=== PATIENT | male | born 1975 | race Native Hawaiian/Other Pacific Islander ===

== ENCOUNTER 2018-09-14 03:48 | Inpatient (IN) | payer MEDICAID ==
[2018-09-14] MEDS ORDERED: Naloxone 0.4 mg/ml Inj (Adult) IVP ONE ×2 (04:01→04:23)
[2018-09-14 04:22] LABS: BASO # 0.03 K/mm3 (0.0-2.0); BASO % 0.2 % (0.0-3.0); EOS # 0.2 (0.0-0.7); EOS % 1.5 % (1.5-5.0); GRAN # 8.72 (1.4-6.5); GRAN % 71.4 % (50.0-68.0); HEMOGLOBIN 16.9 g/dL (14.0-18.0); LYMPH # 2.2 (1.2-3.4); LYMPH % 18.3 % (22.0-35.0); MEAN CELL VOLUME 86.3 fl (80.0-105.0); MEAN CORPUSCULAR HEMOGLOBIN 29.3 pg (25.0-35.0); MEAN CORPUSCULAR HGB CONC 33.9 g/dl (31.0-37.0); MEAN PLATELET VOLUME 9.3 fl (7.0-11.0); MONO # 1.1 (0.1-0.6); MONO % 8.6 % (1.0-6.0); RBC 5.77 10^6/uL (3.5-6.1); RED CELL DISTRIBUTION WIDTH 15.4 % (11.5-14.5); WHITE BLOOD COUNT 12.2 10^3/uL (4.5-11.0)
--- NOTE | 2018-09-14 04:29 | ED PDOC ---
Arrival/HPI - General Chief Complaint: Substance Abuse Time Seen by Provider: 09/14/18 03:49 Historian: Patient - History of Present Illness Narrative History of Present Illness (Text): 09/14/18 04:21 42 year old male, with a past medical history of IV drug abuse, presents to the emergency department by EMS for possible overdose. EMS states family noted patient to be poorly arousable, probably from heroin use. Ems states upon arrival patient was drowsy but awake. EMS informs patient wanted RMA but was strongly advised to come to the emergency department. Patient admits to using heroin, denies alcohol use. Patient denies any fevers, chills, headache, dizziness, chest pain, shortness of breath, cough, abdominal pain, nausea, vomiting, diarrhea, back pain, neck pain, urinary/bowel changes, or any other complaint. Time/Duration: Prior to Arrival Symptom Course: Unchanged Context: Home Past Medical History - Provider Review Nursing Documentation Reviewed: Yes - Psychiatric Hx Substance Use: Yes Family/Social History - Physician Review Nursing Documentation Reviewed: Yes Family/Social History: No Known Family HX Smoking Status: Unknown If Ever Smoked Hx Alcohol Use: No Hx Substance Use: Yes Substance used: heroin Allergies/Home Meds Allergies/Adverse Reactions: Allergies Unobtainable Allergy (Verified 09/14/18 03:56) Home Medications: Home Meds Medication Instructions Recorded Confirmed Unobtainable 09/14/18 09/14/18 Review of Systems - Physician Review All systems were reviewed & negative as marked: Yes - Review of Systems Constitutional: absent: Fevers, Night Sweats Respiratory: absent: SOB, Cough Cardiovascular: absent: Other Gastrointestinal: absent: Abdominal Pain, Diarrhea, Nausea, Vomiting Genitourinary Male: absent: Urinary Output Changes Musculoskeletal: absent: Back Pain, Neck Pain Neurological: absent: Headache, Dizziness Physical Exam Vital Signs Reviewed: Yes Vital Signs Pulse Resp BP Pulse Ox 09/14/18 03:53 132 H 20 184/144 H 96 Blood Pressure: Hypertensive Pulse: Tachycardic Respiratory Rate: Normal Appearance: Positive for: Well-Appearing, Non-Toxic, Comfortable Pain Distress: None Mental Status: Positive for: Lethargic - Systems Exam Head: Present: Atraumatic, Normocephalic Pupils: Present: Pinpoint Extroacular Muscles: Present: EOMI Conjunctiva: Present: Normal Mouth: Present: Moist Mucous Membranes Neck: Present: Normal Range of Motion Respiratory/Chest: Present: Clear to Auscultation, Good Air Exchange. No: Respiratory Distress, Accessory Muscle Use Cardiovascular: Present: Regular Rate and Rhythm, Normal S1, S2. No: Murmurs Abdomen: No: Tenderness, Distention, Peritoneal Signs Back: Present: Normal Inspection Upper Extremity: Present: Normal Inspection. No: Cyanosis, Edema Lower Extremity: Present: Normal Inspection. No: Edema Skin: Present: Warm, Dry, Normal Color. No: Rashes Psychiatric: Present: Oriented x 3, Intoxicated, Lethargic Medical Decision Making ED Course and Treatment: 09/14/18 04:32 Impression: 42 year old male presents with overdose. Plan: -- EKG -- Chest X-ray -- Narcan -- Reassess and disposition Prior Visits: Notes and results from previous visits were reviewed. Progress Notes: 09/14/18 07:15 Case endorsed to /pending lab completion/sobriety/reassess/final disposition - Lab Interpretations Lab Results: Lab Results 09/14/18 04:02: POC Glucose (mg/dL) 176 H - RAD Interpretation Radiology Orders: 09/14/18 04:00 CHEST PORTABLE [RAD] Stat - Medication Orders Current Medication Orders: Discontinued Medications Naloxone HCl (Narcan) 0.4 mg IVP ONCE ONE Stop: 09/14/18 04:02 Last Admin: 09/14/18 04:11 Dose: 0.4 mg IVP Administration Document 09/14/18 04:11 CNR (Rec: 09/14/18 04:11 CNR [id number]) Charges for Administration # of IVP Administrations 1 - Scribe Statement The provider has reviewed the documentation as recorded by the Nando Wilcox Provider Scribe Attestation: All medical record entries made by the Scribe were at my direction and personally dictated by me. I have reviewed the chart and agree that the record accurately reflects my personal performance of the history, physical exam, medical decision making, and the department course for this patient. I have also personally directed, reviewed, and agree with the discharge instructions and disposition. Disposition/Present on Arrival - Present on Arrival Any Indicators Present on Arrival: No History of DVT/PE: No History of Uncontrolled Diabetes: No Urinary Catheter: No History of Decub. Ulcer: No History Surgical Site Infection Following: None - Disposition Have Diagnosis and Disposition been Completed?: No Diagnosis: Opiate abuse, episodic Disposition Time: 07:13 Condition: STABLE Referrals: José Luis Collier MD [Primary Care Provider] - Follow up with primary Forms: [employer] (Kyrgyz)
[2018-09-14] MEDS ORDERED: Sodium Chloride 0.9% 1,000 ML IV STA (04:54)
[2018-09-14 07:04] LABS: ALB/GLOB RATIO 0.6 (1.1-1.8); ALBUMIN 3.3 g/dL (3.0-4.8); ALT/SGPT 35 U/L (7-56); AST/SGOT 47 U/L (17-59); BLOOD UREA NITROGEN 13 mg/dL (7-21); CALCIUM 8.2 mg/dL (8.4-10.5); GFR NON-AFRICAN AMERICAN > 60
--- NOTE | 2018-09-14 07:11 | ED PDOC ---
Physical Exam Vital Signs Reviewed: Yes Vital Signs Temp Pulse Resp BP Pulse Ox 09/14/18 05:42 107 H 26 H 171/113 H 96 09/14/18 03:53 97.3 F L 132 H 20 184/144 H 96 Temperature: Hypothermic Blood Pressure: Hypertensive Pulse: Tachycardic Respiratory Rate: Normal Appearance: Positive for: Well-Appearing, Non-Toxic, Comfortable Pain Distress: None Mental Status: Positive for: Alert and Oriented X 3 Medical Decision Making ED Course and Treatment: 09/14/18 07:10: Case endorsed to me by Dr. Hernandez. Patient brought into the emergency department for IV heroin drug abuse. Pending sobriety, reassessment, and disposition. 09/14/18 07:41: Troponin reported to be 0.15. Will repeat EKG. 09/14/18 07:49: Reviewed EKG from 03:58 which showed sinus tachycardia at [address]-depressions in the inferior lateral leads. 09/14/18 07:53: Patient is alert, awake, and oriented X 3. Admits to IV heroin use. He states that he only used 1 bag. He reports that he felt general body aches yesterday, but denies chest pain or shortness of breath. Patient currently denies any chest pain or shortness of breath. Patient has a history of DM, HTN, HLD and is a smoker. Discussed results from blood work with patient and agrees to be admitted for cardiac workup. Patient's PMD is Dr. Collier. 09/14/18 07:59: Case discussed in detail with Dr. Donaldson who accepts the patient to the hospitalist's service. Labetolol IV and Aspirin PO ordered. 09/14/18 08:07 Repeat EKG: NSR at [address] depression in inferior lateral leads, similar to EKG on arrival to ED 09/14/18 08:14: Case discussed in detail with Dr. June who was informed of current medical medical management. He has no further recommendation to me at this time. He was placed on cardiology consult. - Critical Care Critical Care Minutes: 30 minutes - Lab Interpretations Lab Results: 09/14/18 04:05 09/14/18 06:35 Lab Results 09/14/18 06:35: Sodium 135, Potassium 3.5 L, Chloride 104, Carbon Dioxide 24, Anion Gap 11, BUN 13, Creatinine 1.0, Est GFR ( Amer) > 60, Est GFR (Non- Af Amer) > 60, Random Glucose 140 H, Calcium 8.2 L, Total Bilirubin 2.4 H, AST 47, ALT 35, Alkaline Phosphatase 223 H, Lactate Dehydrogenase 665, Total Creatine Kinase 138, Troponin I Pending, Total Protein 8.6 H, Albumin 3.3, Globulin 5.3, Albumin/Globulin Ratio 0.6 L 09/14/18 04:05: WBC 12.2 H, RBC 5.77, Hgb 16.9, Hct 49.8, MCV 86.3, MCH 29.3, MCHC 33.9, RDW 15.4 H, Plt Count 316, MPV 9.3, Gran % 71.4 H, Lymph % (Auto) 1 8.3 L, [place] % (Auto) 8.6 H, Eos % (Auto) 1.5, Baso % (Auto) 0.2, Gran # 8.72 H, Lymph # (Auto) 2.2, [place] # (Auto) 1.1 H, Eos # (Auto) 0.2, Baso # (Auto) 0.03 09/14/18 04:02: POC Glucose (mg/dL) 176 H - RAD Interpretation Radiology Orders: 09/14/18 04:00 CHEST PORTABLE [RAD] Stat - Medication Orders Current Medication Orders: Discontinued Medications Sodium Chloride (Sodium Chloride 0.9%) 1,000 mls @ 999 mls/hr IV .Q1H1M STA Stop: 09/14/18 05:54 Last Admin: 09/14/18 05:02 Dose: 999 mls/hr eMAR Start Stop Document 09/14/18 05:02 CNR (Rec: 09/14/18 05:03 CNR [id number]) Intravenous Solution Start Date 09/14/18 Start Time 05:03 End Date 09/14/18 End time 06:03 Total Infusion Time 60 Naloxone HCl (Narcan) 0.4 mg IVP ONCE ONE Stop: 09/14/18 04:02 Last Admin: 09/14/18 04:11 Dose: 0.4 mg IVP Administration Document 09/14/18 04:11 CNR (Rec: 09/14/18 04:11 CNR [id number]) Charges for Administration # of IVP Administrations 1 Naloxone HCl (Narcan) 0.4 mg IVP ONCE ONE Stop: 09/14/18 04:24 Last Admin: 09/14/18 04:20 Dose: 0.4 mg IVP Administration Document 09/14/18 04:20 CNR (Rec: 09/14/18 04:25 CNR [id number]) Charges for Administration # of IVP Administrations 1 - Scribe Statement The provider has reviewed the documentation as recorded by the Nando Maddox Provider Scribe Attestation: All medical record entries made by the Scribe were at my direction and personally dictated by me. I have reviewed the chart and agree that the record accurately reflects my personal performance of the history, physical exam, medical decision making, and the department course for this patient. I have also personally directed, reviewed, and agree with the discharge instructions and disposition. Disposition/Present on Arrival - Present on Arrival Any Indicators Present on Arrival: No History of DVT/PE: No History of Uncontrolled Diabetes: No Urinary Catheter: No History of Decub. Ulcer: No History Surgical Site Infection Following: None - Disposition Have Diagnosis and Disposition been Completed?: Yes Diagnosis: Hypertensive emergency, Heroin overdose, NSTEMI (non-ST elevated myocardial infarction) Disposition Time: 08:19 Patient Plan: Admission Patient Problems: Current Active Problems Problem Status Onset Opiate abuse, episodic Acute Condition: STABLE
[2018-09-14 07:37] LABS: TROPONIN I 0.15 ng/mL
[2018-09-14] MEDS ORDERED: Labetalol 5 mg/ml Inj 20ML IV STA (08:01)
[2018-09-14] MEDS ORDERED: Potassium Chloride 20 mEq ER Tab PO STA (08:23)
--- NOTE | 2018-09-14 08:32 | CP.PCM.HP ---
<BarberClementine - Last Filed: 09/14/18 19:10> History of Present Illness - History of Present Illness History of Present Illness: PGY-[address] Donaldson Mr Katerina, 42 M, with PMHx TIA, CHF/HTN/HLD, DM2, active smoker, Hx polysubstance abuse, was brought by EMS for overdose. Per ED record, EMS states family noted patient to be poorly arousable, probably from heroin use. Ems states upon arrival patient was drowsy but awakable. Patient admits to using IV heroin (1 bag), denies alcohol use. Pt endorsed that he had sore throat, runny nose, general body aches x 1 week. Then 3 days ago, he had penile discharge with dysuria. Denies new sexual partner or similar symptoms in partner. Because of the dysuria, pt resorted to heroine use as pain killer. At baseline, pt sleeps on 1 pillow, denies orthopnea, but become dyspneic after walking [address] or [address] flight of stairs ROS - Patient denies any fevers, chills, headache, dizziness, chest pain, shortness of breath, cough, abdominal pain, nausea, vomiting, diarrhea, back pain, neck pain, urinary/bowel changes, or any other complaint. In the ED, T 97.3, HR 132, 184/144, RR 26, 96% RA WBC 12.2 with granulocytosis. Hb 16.9 K 3.5. BUN/Cre 13/1. Sugar 176. TB 2.4. AST 47/ALT 35. Alk phos 223 CXR: Patchy R basilar infiltrate EKG 4AM: sinus tachycardia at [address]-depressions in the inferior lateral leads more than 0.5mm depression EKG 8am : NSR at [address] depression in inferior lateral leads, Less than 0.5mm depression Troponin reported to be 0.15 x 2. Narcan 0.4 IVP x 2. Labetolol IV x 20. Aspirin PO 324. NS 1L PMD - Dr Collier [facility] TIA, 2017 HTN/HLD CHF, diagnosed 2016 DM2 Active smoker IVDU PSH Cardiac [place] [facility]. Endorsed by pt to have no blockage FH Mom - ESRD DM SH Live with significant other (female), mom, dad, and brother. Ambulate independently Active smoker, 1ppd x 20yr Denied ETOH [place] monthly. Heroine, IV R arm, 2nd time to use. 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 Present on Admission - Present on Admission Any Indicators Present on Admission: No Past Patient History - Past Social History Smoking Status: Unknown If Ever Smoked - PSYCHIATRIC Hx Substance Use: Yes Meds Allergies/Adverse Reactions: Allergies Allergy/AdvReac Type Severity Reaction Status Date / Time No Known Allergies Allergy Verified 09/14/18 14:25 Physical Exam - Constitutional Appears: No Acute Distress - Head Exam Head Exam: ATRAUMATIC, NORMAL INSPECTION, NORMOCEPHALIC - Eye Exam Eye Exam: EOMI, Normal appearance, PERRL. absent: Scleral icterus Pupil Exam: NORMAL ACCOMODATION - ENT Exam ENT Exam: Mucous Membranes Moist - Neck Exam Neck exam: Negative for: Lymphadenopathy Additional comments: supple - Respiratory Exam Respiratory Exam: Clear to Auscultation Bilateral, NORMAL BREATHING PATTERN. absent: Decreased Breath Sounds, Rales, Rhonchi, Wheezes - Cardiovascular Exam Cardiovascular Exam: REGULAR RHYTHM, +S1, +S2. absent: Systolic Murmur - GI/Abdominal Exam GI & Abdominal Exam: Normal Bowel Sounds, Soft. absent: Distended, Firm, Guard ing, Tenderness - Exam Exam: Uretheral Discharge (clear, non-bloody). absent: Scrotal Swelling, Testicular Tenderness, Bladder Distension - Extremities Exam Extremities exam: Positive for: normal capillary refill, normal inspection, pedal pulses present. Negative for: calf tenderness, pedal edema Additional comments: Needle ector on R forearm, no rash - Back Exam Back exam: absent: CVA tenderness (L), CVA tenderness (R), rash noted, vertebral tenderness - Neurological Exam Neurological exam: Alert, CN II-XII Intact, Oriented x3 - Psychiatric Exam Psychiatric exam: Normal Affect, Normal Mood - Skin Skin Exam: Dry, Warm Results - Vital Signs Recent Vital Signs: Last Vital Signs Temp 97.3 F L 09/14/18 03:53 Pulse 98 H 09/14/18 07:24 Resp 21 09/14/18 07:24 BP 176/124 H 09/14/18 08:09 Pulse Ox 97 09/14/18 07:24 - Labs Result Diagrams: 09/14/18 04:05 10/26/18 06:35 Labs: Laboratory Results - last 24 hr 09/14/18 09/14/18 09/14/18 04:02 04:05 06:35 WBC 12.2 H RBC 5.77 Hgb 16.9 Hct 49.8 MCV 86.3 MCH 29.3 MCHC 33.9 RDW 15.4 H Plt Count 316 MPV 9.3 Gran % 71.4 H Lymph % (Auto) 18.3 L [place] % (Auto) 8.6 H Eos % (Auto) 1.5 Baso % (Auto) 0.2 Gran # 8.72 H Lymph # (Auto) 2.2 [place] # (Auto) 1.1 H Eos # (Auto) 0.2 Baso # (Auto) 0.03 Sodium 135 Potassium 3.5 L Chloride 104 Carbon Dioxide 24 Anion Gap 11 BUN 13 Creatinine 1.0 Est GFR ( Amer) > 60 Est GFR (Non-Af Amer) > 60 POC Glucose (mg/dL) 176 H Random Glucose 140 H Calcium 8.2 L Total Bilirubin 2.4 H AST 47 ALT 35 Alkaline Phosphatase 223 H Lactate Dehydrogenase 665 Total Creatine Kinase 138 Troponin I 0.15 H* Total Protein 8.6 H Albumin 3.3 Globulin 5.3 Albumin/Globulin Ratio 0.6 L Assessment & Plan - Assessment and Plan (Free Text) Plan: Mr Borges, 42 M, with PMHx TIA, CHF/HTN/HLD, DM2, active smoker, Hx polysubstance abuse, was admitted for alter mental status due to IV heroine overdose. He was found to have leukocytosis 12.2 and Patchy R basilar infiltrate on CXR likely aspiration pneumonitis. He was found to have elevated trops of 0.[address] depression at inferior-lateral leads, likely NSTEMI due to demand ischemia. ESTEPHANIA score is 1 for known cardiac risk, no need for emergent catherterization. Alter mental status due to IV heroine overdose - improve after narcane - neuro check q4h - Continuous CO2 monitor - aspiration precautions - Weaving Professor for substance abuse cessation NSTEMI, likely due to demand ischemia from sinus tachycardia at 140 s/p narcane Sinus tachycardia - resolved Hx CHF HTN/HLD - No need for emergent cath, low ESTEPHANIA score - No need for heparin gtt for now due to mild trop leaks. Pending cardiology re cs - Continue to trend trops and EKG - Echocardiogram - ASA 81, Lipitor 10, Coreg 3.125 BID Aspiration pneumonitis vs CAP from upper respiratory infection - ceftriaxone and flagyl - trend WBC - follow blood culture, urine ulture, procalcitonin Urethritis, Dyusria, Penile discharge - Pending Gonorrhea/Chlamydia RNA from urethral swab - ABX has coverage Hx DM2 - follow A1c - ISSS-low, Accucheck - diabetic education Active smoker - nicoderm patch - consumer credit counselor for cessation Direct Hyperbilirubenimia - No abdominal pain - questionable from polysubstance abuse - continue to trend bilirubin for now. If level improves, will increase lipitor to 20 tomorrow Medication non-compliance - conducted pt education Prophylaxis - protonix, heparin SC s/r/d/w Dr Donaldson <Penny Donaldson R - Last Filed: 09/15/18 12:53> Results - Vital Signs Recent Vital Signs: Last Vital Signs Temp 97.6 F 09/15/18 12:00 Pulse 81 09/15/18 12:00 Resp 20 09/15/18 12:00 BP 153/108 H 09/15/18 12:00 Pulse Ox 96 09/15/18 06:00 - Labs Result Diagrams: 09/15/18 05:30 09/15/18 05:30 Labs: Laboratory Results - last 24 hr 09/14/18 09/14/18 09/14/18 04:10 06:35 09:00 WBC RBC Hgb Hct MCV MCH MCHC RDW Plt Count MPV Gran % Lymph % (Auto) [place] % (Auto) Eos % (Auto) Baso % (Auto) Gran # Lymph # (Auto) [place] # (Auto) Eos # (Auto) Baso # (Auto) Sodium Potassium Chloride Carbon Dioxide Anion Gap BUN Creatinine Est GFR ( Amer) Est GFR (Non-Af Amer) POC Glucose (mg/dL) Random Glucose Hemoglobin A1c 6.8 H Calcium Phosphorus Magnesium Total Bilirubin AST ALT Alkaline Phosphatase Lactate Dehydrogenase Total Creatine Kinase Troponin I Total Protein Albumin Globulin Albumin/Globulin Ratio Procalcitonin 0.35 Urine Color Urine Appearance Urine pH Ur Specific [place] Urine Protein Urine Glucose (UA) Urine Ketones Urine Blood Urine Nitrate Urine Bilirubin Urine Urobilinogen Ur Leukocyte Esterase Urine RBC Urine WBC Urine Bacteria Urine Opiates Screen Urine Methadone Screen Ur Barbiturates Screen Ur Phencyclidine Scrn Ur Amphetamines Screen U Benzodiazepines Scrn U Oth Cocaine Metabols U Cannabinoids Screen HIV 1&2 Ag/Ab, 4th Gen Nonreactive 09/14/18 09/14/18 09/14/18 11:35 13:33 18:12 WBC RBC Hgb Hct MCV MCH MCHC RDW Plt Count MPV Gran % Lymph % (Auto) [place] % (Auto) Eos % (Auto) Baso % (Auto) Gran # Lymph # (Auto) [place] # (Auto) Eos # (Auto) Baso # (Auto) Sodium Potassium Chloride Carbon Dioxide Anion Gap BUN Creatinine Est GFR ( Amer) Est GFR (Non-Af Amer) POC Glucose (mg/dL) 122 H Random Glucose Hemoglobin A1c Calcium Phosphorus Magnesium Total Bilirubin AST ALT Alkaline Phosphatase Lactate Dehydrogenase Total Creatine Kinase Troponin I 0.15 H* Total Protein Albumin Globulin Albumin/Globulin Ratio Procalcitonin Urine Color Yellow Urine Appearance Turbid Urine pH 7.5 Ur Specific [place] 1.020 Urine Protein >=300 H Urine Glucose (UA) 100 H Urine Ketones Negative Urine Blood Large H Urine Nitrate Negative Urine Bilirubin Small H Urine Urobilinogen 2.0 H Ur Leukocyte Esterase Large H Urine RBC 1 - 3 Urine WBC Tntc Urine Bacteria Many Urine Opiates Screen Urine Methadone Screen Ur Barbiturates Screen Ur Phencyclidine Scrn Ur Amphetamines Screen U Benzodiazepines Scrn U Oth Cocaine Metabols U Cannabinoids Screen HIV 1&2 Ag/Ab, 4th Gen 09/14/18 09/14/18 09/14/18 18:16 21:24 22:45 WBC RBC Hgb Hct MCV MCH MCHC RDW Plt Count MPV Gran % Lymph % (Auto) [place] % (Auto) Eos % (Auto) Baso % (Auto) Gran # Lymph # (Auto) [place] # (Auto) Eos # (Auto) Baso # (Auto) Sodium Potassium Chloride Carbon Dioxide Anion Gap BUN Creatinine Est GFR ( Amer) Est GFR (Non-Af Amer) POC Glucose (mg/dL) 114 H Random Glucose Hemoglobin A1c Calcium Phosphorus Magnesium Total Bilirubin AST ALT Alkaline Phosphatase Lactate Dehydrogenase 640 Total Creatine Kinase 101 Troponin I 0.12 Total Protein Albumin Globulin Albumin/Globulin Ratio Procalcitonin Urine Color Urine Appearance Urine pH Ur Specific [place] Urine Protein Urine Glucose (UA) Urine Ketones Urine Blood Urine Nitrate Urine Bilirubin Urine Urobilinogen Ur Leukocyte Esterase Urine RBC Urine WBC Urine Bacteria Urine Opiates Screen Positive H Urine Methadone Screen Negative Ur Barbiturates Screen Negative Ur Phencyclidine Scrn Negative Ur Amphetamines Screen Positive H U Benzodiazepines Scrn Negative U Oth Cocaine Metabols Negative U Cannabinoids Screen Negative HIV 1&2 Ag/Ab, 4th Gen 09/15/18 09/15/18 09/15/18 05:30 05:30 05:30 WBC 10.8 RBC 4.98 Hgb 14.3 D Hct 43.3 MCV 86.9 MCH 28.7 MCHC 33.0 RDW 14.9 H Plt Count 299 MPV 9.7 Gran % 62.7 Lymph % (Auto) 22.9 [place] % (Auto) 10.7 H Eos % (Auto) 3.1 Baso % (Auto) 0.6 Gran # 6.76 H Lymph # (Auto) 2.5 [place] # (Auto) 1.2 H Eos # (Auto) 0.3 Baso # (Auto) 0.07 Sodium 132 Potassium 4.4 Chloride 100 Carbon Dioxide 23 Anion Gap 12 BUN 23 H Creatinine 1.1 Est GFR ( Amer) > 60 Est GFR (Non-Af Amer) > 60 POC Glucose (mg/dL) Random Glucose 78 Hemoglobin A1c Calcium 8.3 L Phosphorus 3.6 Magnesium 1.6 L Total Bilirubin 2.4 H AST 36 ALT 31 Alkaline Phosphatase 170 H D Lactate Dehydrogenase 628 Total Creatine Kinase 74 Troponin I 0.23 H* D Total Protein 7.5 Albumin 2.6 L Globulin 4.8 Albumin/Globulin Ratio 0.5 L Procalcitonin Urine Color Urine Appearance Urine pH Ur Specific [place] Urine Protein Urine Glucose (UA) Urine Ketones Urine Blood Urine Nitrate Urine Bilirubin Urine Urobilinogen Ur Leukocyte Esterase Urine RBC Urine WBC Urine Bacteria Urine Opiates Screen Urine Methadone Screen Ur Barbiturates Screen Ur Phencyclidine Scrn Ur Amphetamines Screen U Benzodiazepines Scrn U Oth Cocaine Metabols U Cannabinoids Screen HIV 1&2 Ag/Ab, 4th Gen Attending/Attestation - Attestation I have personally seen and examined this patient.: Yes I have fully participated in the care of the patient.: Yes I have reviewed all pertinent clinical information: Yes Notes (Text): Patient seen and examined by me with resident at 10:30AM with resident 10/26/18. Case including HPI, physical exam, and assessment and plan discussed with resident. Agree with above with following additions/corrections. Patient is a 42-year-old male with past medical history significant for type 2 diabetes, hypertension, questionable CHF, noncompliance with all medications, tobacco abuse, and polysubstance abuse including IV heroin and marijuana that presented to the emergency room after using IV heroin and being lethargic. Patient states that he has only used heroin once before approximately one month ago. Patient states that he is unsure what happened. He states that the person that was doing heroin with him felt something was wrong as the patient was lethargic. EMS was called. Patient was given 2 doses of Narcan in the emergency room. Patient states he had some vomiting after receiving the Narcan. Patient states he was using heroin because he was having excruciating pain urinating for the past 2 days. Patient feels he may have an STD and believes it's chlamydia. Patient states he has noticed a clear sticky discharge from his penis. States he also has some burning with urination. No associated fevers or chills. Patient states that he has also had a runny nose, nonproductive cough, and itchy throat for the past week. Patient denies any chest pain or shortness of breath. No headaches or dizziness. No change in vision. Patient does feel lightheaded. No current nausea, vomiting or abdominal pain. No diarrhea or constipation. No neck pain or back pain. 12 point review of systems reviewed by me. See above HPI, all other systems are negative. Family history. Mother alive and ESRD on HD. Father alive and healthy. Physical exam: General: Awake and alert sitting up in bed in no distress HEENT: Normocephalic atraumatic. Extra ocular muscles intact. Pupils equal and reactive. No scleral icterus. Oropharynx is pink and moist. No pharyngeal erythema or exudate appreciated. Neck is supple. Ears and nose externally unremarkable. Cardiovascular: Normal rhythm. Normal S1, S2. No murmurs, rubs, or gallops appreciated Pulmonary: Normal respiratory effort. No rhonchi, rales, or wheezing appreciated Gastrointestinal: Soft, nondistended. Nontender. Positive bowel sounds all 4 quadrants, no guarding. Musculoskeletal: Moves all extremities, no calf tenderness. No edema appreciated : No penile lesions or erythema noted. Scant about of clear discharge noted. Central nervous system: AAOx3. CN2-12 grossly intact. 5/5 muscle strength all extremities. Dermatologic: Skin warm and dry. Assessment and plan: Patient is a 42-year-old male with past medical history significant for type 2 diabetes, hypertension, questionable CHF, noncompliance with all medications, tobacco abuse, and polysubstance abuse including IV heroin and marijuana that presented to the emergency room after using IV heroin and being lethargic. 1. Heroin overdose. Status post Narcan. Patient now awake and alert. Patient counseled at length on cessation. Aspiration precaution. 2. Accelerated hypertension. Patient was given labetalol in the emergency room with resolution. Patient does have a history of hypertension and does not take any medications. Started on Coreg with hold parameters. Cardiology consulted, follow up recommendations. 3. Elevated troponin. ?h/o CHF, patient is unsure if he was previously diagnosed with this. Follow up serial troponins. Follow up 2D echo. Cardiology consulted, follow-up recommendations. Lipid panel with the low HDL. Hemoglobin A1c 6.8. Monitor on telemetry. Started on aspirin, Lipitor, and Coreg. 4. Dysuria. UA shows urine infection. Follow-up results for chlamydia. Patient started on Rocephin. Follow-up urine culture. 5. Leukocytosis. May be secondary to UTI. Chest x-ray per radiologist shows patchy right basilar infiltrate, linear atelectasis right lung base, small bibasilar pleural effusions, bilateral hilar prominence, cardiomegaly. Started on Rocephin and Flagyl. Pro-calcitonin 0.35. We'll hold off on IV fluids sec ondary to possible history of CHF. Patient did receive a liter of fluids in the ICU. 6. Diabetes. Hemoglobin A1c 6.8. Patient does not take any medications at home. Started on insulin sliding scale. Monitor Accu-Cheks. Patient should be placed on diabetic medications prior to discharge. 7. Tobacco abuse. Marijuana use. Counseled on cessation. 8. GI/DVT prophylaxis. Protonix/heparin Case was discussed in detail with the patient regarding diagnosis and treatment plan, all questions answered.
[2018-09-14 08:57] LABS: BILIRUBIN,DIRECT 1.7 mg/dL (0.0-0.4)
[2018-09-14 09:31] LABS: INR 1.53; PARTIAL THROMBOPLASTIN TIME 38.3 Seconds (25.1-36.5); PROTHROMBIN TIME 17.7 SECONDS (9.4-12.5)
--- NOTE | 2018-09-14 10:17 | RAD ---
HISTORY: overdose COMPARISON: No prior. TECHNIQUE: Chest, one view. FINDINGS: LUNGS: Patchy right basilar infiltrate. Linear atelectasis, right lung base. Small bibasilar pleural effusions. Bilateral hilar prominence. No definite pneumothorax. Please note that chest x-ray has limited sensitivity for the detection of pulmonary masses. CARDIOVASCULAR: Cardiomegaly. Atherosclerotic calcification of the aorta present. OSSEOUS STRUCTURES: Degenerative changes. VISUALIZED UPPER ABDOMEN: Unremarkable. OTHER FINDINGS: None. IMPRESSION: Patchy right basilar infiltrate. Linear atelectasis, right lung base. Small bibasilar pleural effusions. Bilateral hilar prominence. Cardiomegaly.
--- NOTE | 2018-09-14 11:12 | CARD ---
APPROVED REPORT Date of service: 09/14/2018 EKG Measurement Heart [id number] <Conclusion> Sinus tachycardia Possible Left atrial enlargement Rightward axis IVCD ST & T wave abnormality, consider inferolateral ischemia LVH
--- NOTE | 2018-09-14 11:32 | CARD ---
APPROVED REPORT Date of service: 09/14/2018 EKG Measurement Heart [id number] <Conclusion> Normal sinus rhythm Rightward axis ST & T wave abnormality, consider lateral ischemia Prolonged QT No change
[2018-09-14 12:52] LABS: TROPONIN I 0.15 ng/mL
[2018-09-14] MEDS ORDERED: Azithromycin 500MG/NS 250ml 500 MG/250 ML BAG IVPB SCH (13:45)
[2018-09-14 13:54] LABS: PH,URINE 7.5 (4.7-8.0); URINE BILIRUBIN SMALL (NEGATIVE); URINE BLOOD LARGE (NEGATIVE); URINE GLUCOSE (UA) 100 mg/dL (NEGATIVE); URINE LEUKOCYTE ESTERASE LARGE Leu/uL (NEGATIVE); URINE PROTEIN >=300 mg/dL (<30 mg/dL)
[2018-09-14 13:58] LABS: URINE APPEARANCE TURBID (CLEAR); URINE COLOR YELLOW (YELLOW)
[2018-09-14 13:59] LABS: URINE BACTERIA MANY (NEG); URINE WBC TNTC /hpf (0-6)
[2018-09-14] MEDS: cefTRIAXone 1 gm 1 GM/100 ML BAG IVPB SCH (14:22)
[2018-09-14 14:52] VITALS: BMI 24.2
[2018-09-14] MEDS ORDERED: Influenza Vaccine 60 mcg/0.5 mL SYR (4YR UP) IM ONE (14:52)
[2018-09-14] MEDS ORDERED: Pneumococcal 23-Valent Vaccine IM ONE (14:52)
[2018-09-14] MEDS: Insulin Reg-LOW-Coverage SC SCH ×2 (18:13→22:01)
[2018-09-14 18:58] LABS: TROPONIN I 0.12 ng/mL
[2018-09-14] MEDS: metroNIDAZOLE IV 500 mg/100 ml 500 MG/100 ML BAG IVPB SCH (22:06)
[2018-09-14 23:19] LABS: BARBITURATES, UR NEGATIVE (NEGATIVE); BENZODIAZEPINES, UR NEGATIVE (NEGATIVE); OPIATES, UR POSITIVE (NEGATIVE); PHENCYCLIDINE, UR NEGATIVE (NEGATIVE)
[2018-09-15] MEDS: metroNIDAZOLE IV 500 mg/100 ml 500 MG/100 ML BAG IVPB SCH ×3 (05:41→21:57)
[2018-09-15] MEDS: Pantoprazole 40 mg EC Tab PO SCH (05:43)
[2018-09-15 07:01] LABS: BASO # 0.07 K/mm3 (0.0-2.0); BASO % 0.6 % (0.0-3.0); EOS # 0.3 (0.0-0.7); EOS % 3.1 % (1.5-5.0); GRAN # 6.76 (1.4-6.5); GRAN % 62.7 % (50.0-68.0); HEMOGLOBIN 14.3 g/dL (14.0-18.0); LYMPH # 2.5 (1.2-3.4); LYMPH % 22.9 % (22.0-35.0); MEAN CELL VOLUME 86.9 fl (80.0-105.0); MEAN CORPUSCULAR HEMOGLOBIN 28.7 pg (25.0-35.0); MEAN PLATELET VOLUME 9.7 fl (7.0-11.0); MONO # 1.2 (0.1-0.6); MONO % 10.7 % (1.0-6.0); RBC 4.98 10^6/uL (3.5-6.1); RED CELL DISTRIBUTION WIDTH 14.9 % (11.5-14.5); WHITE BLOOD COUNT 10.8 10^3/uL (4.5-11.0)
[2018-09-15 07:52] LABS: TROPONIN I 0.23 ng/mL
[2018-09-15 07:53] LABS: ALB/GLOB RATIO 0.5 (1.1-1.8); ALBUMIN 2.6 g/dL (3.0-4.8); ALT/SGPT 31 U/L (7-56); AST/SGOT 36 U/L (17-59); BLOOD UREA NITROGEN 23 mg/dL (7-21); CALCIUM 8.3 mg/dL (8.4-10.5); GFR NON-AFRICAN AMERICAN > 60
[2018-09-15] MEDS ORDERED: Magnesium Sulfate 1 gm in D5W 1 GM/100 ML BAG IVPB ONE (09:16)
[2018-09-15] MEDS: Insulin Reg-LOW-Coverage SC SCH ×4 (10:05→22:07)
[2018-09-15] MEDS: cefTRIAXone 1 gm 1 GM/100 ML BAG IVPB SCH (10:06)
--- NOTE | 2018-09-15 14:10 | CP.PCM.PN ---
<Lex Rincon - Last Filed: 09/15/18 15:14> Subjective - Date & Time of Evaluation Date of Evaluation: 09/15/18 Time of Evaluation: 10:30 - Subjective Subjective: Lex Rincon DO, PGY-1 Hospitalist Progress Note for Dr. Sissy Donaldson Patient was seen and examined at bedside this AM. He states that this AM he is feeling increasing abdominal pain and fulness. He also endorses dysuria and continued penile discharge. Otherwise he denies fever/chills, CP, SOB, nausea/vomiting. Objective - Vital Signs/Intake and Output Vital Signs (last 24 hours): Temp Pulse Resp BP Pulse Ox 97.6 F 81 20 153/108 H 96 09/15/18 12:00 09/15/18 12:00 09/15/18 12:00 09/15/18 12:00 09/15/18 06:00 Intake and Output: 09/15/18 09/15/18 06:59 18:59 Intake Total 440 Output Total 0 Balance 440 - Medications Medications: Current Medications Aspirin (Aspirin Chewable) 81 mg PO DAILY [facility] Last Admin: 09/15/18 10:05 Dose: 81 mg Atorvastatin Calcium (Lipitor) 10 mg PO DIN [facility] Last Admin: 09/14/18 18:04 Dose: 10 mg Carvedilol (Coreg) 6.25 mg PO BID [facility] Last Admin: 09/15/18 11:02 Dose: 6.25 mg Heparin Sodium (Porcine) (Heparin) 5,000 units SC Q8 [facility]; Protocol Last Admin: 09/15/18 05:43 Dose: 5,000 units Ceftriaxone Sodium (Rocephin 1 Gram Ivpb) 1 gm in 100 mls @ 100 mls/hr IVPB DAILY [facility]; Protocol Last Admin: 09/15/18 10:06 Dose: 100 mls/hr Metronidazole (Flagyl) 500 mg in 100 mls @ 100 mls/hr IVPB Q8 [facility]; Protocol Last Admin: 09/15/18 05:41 Dose: 100 mls/hr Insulin Human Regular (Humulin R Low) 0 units SC ACHS [facility]; Protocol Last Admin: 09/15/18 13:05 Dose: Not Given Nicotine (Nicoderm Cq) 1 patch TD DAILY [facility] Last Admin: 09/15/18 11:03 Dose: 1 patch Pantoprazole Sodium (Protonix Ec Tab) 40 mg PO 0600 [facility] Last Admin: 09/15/18 05:43 Dose: 40 mg - Labs Labs: 09/15/18 05:30 09/15/18 05:30 PT 17.7 SECONDS (9.4-12.5) H 09/14/18 09:00 INR 1.53 09/14/18 09:00 APTT 38.3 Seconds (25.1-36.5) H 09/14/18 09:00 - Constitutional Appears: Non-toxic, No Acute Distress - Head Exam Head Exam: ATRAUMATIC, NORMOCEPHALIC - Eye Exam Eye Exam: EOMI, Normal appearance, PERRL - ENT Exam ENT Exam: Mucous Membranes Moist - Neck Exam Neck Exam: Full ROM, Normal Inspection - Respiratory Exam Respiratory Exam: Clear to Ausculation Bilateral, NORMAL BREATHING PATTERN. absent: Decreased Breath Sounds, Rales, Rhonchi, Wheezes - Cardiovascular Exam Cardiovascular Exam: REGULAR RHYTHM, RRR, +S1, +S2. absent: Gallop, Rubs, Mur mur - GI/Abdominal Exam GI & Abdominal Exam: Soft, Normal Bowel Sounds. absent: Guarding, Tenderness - Extremities Exam Extremities Exam: Full ROM, Normal Inspection - Back Exam Back Exam: NORMAL INSPECTION - Neurological Exam Neurological Exam: Alert, Awake, Oriented x3 - Psychiatric Exam Psychiatric exam: Normal Affect, Normal Mood - Skin Skin Exam: Dry, Intact, Warm Assessment and Plan - Assessment and Plan (Free Text) Assessment: 42 yo M with PMH of CHF, TIA, DM2, and IVDA who was brought in by EMS for heroin OD. EMS stated that his family noticed he was poorly responsive. Patient admits he was taking IV heroin (1 bag) because of severe groin pain. UDS completed was positive for both opiates and amphetamine. In ED, he was also found to have leukocytosis of 12.2 and RLL infiltrate suspicious for aspiration PNA. He is currently monitored on telemetry. Plan: 1. Altered mental status Presented with altered mental status 2/2 heroin OD Improved after narcan Patient now AA/o x 3, no gross deficits, moving extremities well 2. Hypertension Increase coreg to 6.25 BID PRN hydralazine Consider adding another agent if not improving overnight 3. Dysuria/urethritis/Penile discharge Likely 2/2 underlying UTI and/or possible chlamydia or other STI UA with TNTC pyuria, positive LE, large blood Chlamydia antigen pending, HIV serology negative On rocephin and flagyl for coverage of both and aspiration PNA 4. Troponin elevation Likely 2/2 demand ischemia from tachycardia/HTN from amphetamine use Since troponin is rising today, will continue to trend Since BP is still elevated, will increase coreg to 6.25 mg BID Per patient, he also has hx of CHF Bedside echo performed this AM, read pending Continue to monitor BP, HR closely Cardiology following, recs appreciated 5. RLL infiltrate concerning for aspiration PNA Initially on broad spectrum vanc/zosyn, per ID now on rocephin/flagyl Currently not complaining of CP, SOB, or cough Monitor for resolution 6. Leukocytosis Likely 2/2 UTI and RLL aspiration PNA Continue to monitor 7. DM2 A1c on this visit 6.6 Patient states he has been attempting to control with diet alone Consider starting patient on metformin at home prior to discharge ISS low coverage while admitted 8. Hx of IVDA Bedside echo done this AM, official read pending Continue patient counseling on importance of IVDA cessation F/u social work recs 9. Tobacco abuse Continue patient counseling on importance of smoking cessation DVT/GI PPX: SC heparin/protonix Full Code Diabetic diet Monitor on telemetry Case and plan reviewed and discussed with my attending Dr. Sissy Rincon, DO IM Resident PGY-1 Pager: [phone] <Penny Donaldson R - Last Filed: 09/16/18 16:43> Objective - Vital Signs/Intake and Output Vital Signs (last 24 hours): Temp Pulse Resp BP Pulse Ox 98.6 F 85 18 147/95 H 100 09/16/18 12:00 09/16/18 12:00 09/16/18 12:00 09/16/18 12:00 09/16/18 06:00 Intake and Output: 09/16/18 09/16/18 06:59 18:59 Intake Total 380 Balance 380 - Medications Medications: Current Medications Aspirin (Aspirin Chewable) 81 mg PO DAILY [facility] Last Admin: 09/16/18 10:18 Dose: 81 mg Atorvastatin Calcium (Lipitor) 20 mg PO DIN [facility] Carvedilol (Coreg) 12.5 mg PO BID [facility] Last Admin: 09/16/18 10:18 Dose: 12.5 mg Furosemide (Lasix) 20 mg PO DAILY [facility] Last Admin: 09/16/18 10:15 Dose: 20 mg Heparin Sodium (Porcine) (Heparin) 5,000 units SC Q8 [facility]; Protocol Last Admin: 09/16/18 15:43 Dose: 5,000 units Hydralazine HCl (Apresoline) 10 mg IVP Q6 PRN PRN Reason: Systolic Blood Pressure Ceftriaxone Sodium (Rocephin 1 Gram Ivpb) 1 gm in 100 mls @ 100 mls/hr IVPB DAILY [facility]; Protocol Last Admin: 09/16/18 10:18 Dose: 100 mls/hr Metronidazole (Flagyl) 500 mg in 100 mls @ 100 mls/hr IVPB Q8 [facility]; Protocol Last Admin: 09/16/18 15:42 Dose: 100 mls/hr Insulin Human Regular (Humulin R Low) 0 units SC ACHS [facility]; Protocol Last Admin: 09/16/18 15:43 Dose: Not Given Losartan Potassium (Cozaar) 50 mg PO DAILY [facility] Last Admin: 09/16/18 10:15 Dose: 50 mg Nicotine (Nicoderm Cq) 1 patch TD DAILY [facility] Last Admin: 09/16/18 10:19 Dose: 1 patch Pantoprazole Sodium (Protonix Ec Tab) 40 mg PO 0600 [facility] Last Admin: 09/16/18 05:53 Dose: 40 mg Potassium Chloride (K-Dur 20 Meq Er Tab) 20 meq PO BRK [facility] Last Admin: 09/16/18 10:18 Dose: 20 meq - Labs Labs: 09/16/18 03:00 09/16/18 03:00 PT 17.7 SECONDS (9.4-12.5) H 09/14/18 09:00 INR 1.53 09/14/18 09:00 APTT 38.3 Seconds (25.1-36.5) H 09/14/18 09:00 Attending/Attestation - Attestation I have personally seen and examined this patient.: Yes I have fully participated in the care of the patient.: Yes I have reviewed all pertinent clinical information, including history, physical exam and plan: Yes Notes (Text): Patient seen and examined by me with resident at 9:40AM with resident 09/15/18. Case including HPI, physical exam, and assessment and plan discussed with resident. Agree with above with following additions/corrections. Patient is a 42-year-old male with past medical history significant for type 2 diabetes, hypertension, questionable CHF, noncompliance with all medications, tobacco abuse, and polysubstance abuse including IV heroin and marijuana that presented to the emergency room after using IV heroin and being lethargic. Patient states he is feeling better today. States he is having dysuria today. Patient states that he feels like he needs to urinate and is unable to get urine out. Patient denies any chest pain or shortness of breath. No headaches or di zziness. No nausea, vomiting, or abdominal pain. No diarrhea or constipation. Physical exam: General: Awake and alert sitting up in bed in no distress HEENT: Normocephalic atraumatic. Extraocular muscles intact. Pupils equal and reactive. No scleral icterus. Oropharynx is pink and moist. No pharyngeal erythema or exudate appreciated. Neck is supple. Cardiovascular: Normal rhythm. Normal S1, S2. No murmurs, rubs, or gallops appreciated Pulmonary: Normal respiratory effort. No rhonchi, rales, or wheezing appreciated Gastrointestinal: Soft, nondistended. Nontender. Positive bowel sounds all 4 quadrants, no guarding. Musculoskeletal: Moves all extremities, no calf tenderness. No edema appreciated Central nervous system: AAOx3. CN2-12 grossly intact Dermatologic: Skin warm and dry. Assessment and plan: Patient is a 42-year-old male with past medical history significant for type 2 diabetes, hypertension, questionable CHF, noncompliance with all medications, tobacco abuse, and polysubstance abuse including IV heroin and marijuana that presented to the emergency room after using IV heroin and being lethargic. 1. Heroin overdose and lethargy. Status post Narcan. Resolved. UDS positive for opiates and amphetamines. Discussed with patient. Patient counseled at length on cessation. 2. Accelerated hypertension. Improved. Coreg dose increased. Cardiology following, mentation's appreciated. 3. Elevated troponin. History of systolic CHF. Patient had bedside echo done this morning follow-up results. Cardiology following, recommendations appreciated. Lipid panel with the low HDL. Hemoglobin A1c 6.8. Continue on aspirin, Lipitor, and Coreg. Continue to monitor on telemetry 4. Dysuria. UA shows urine infection. Pending results for chlamydia. Continue on Rocephin. Pending urine culture. 5. Leukocytosis. May be secondary to UTI and possible aspiration pneumonia. Leukocytosis resolved. Chest x-ray per radiologist shows patchy right basilar infiltrate, linear atelectasis right lung base, small bibasilar pleural effusions, bilateral hilar prominence, cardiomegaly. Patient may have had aspiration when vomiting after giving Narcan. Continue on Rocephin and Flagyl. Pro-calcitonin 0.35. 6. Diabetes. Hemoglobin A1c 6.8. Patient does not take any medications at home. Continue insulin sliding scale. Continue to monitor Accu-Cheks. Patient should be placed on diabetic medications prior to discharge. 7. Tobacco abuse. Patient counseled on cessation. 8. GI/DVT prophylaxis. Protonix/heparin Case was discussed in detail with the patient regarding current diagnosis and treatment plan, all questions answered.
--- NOTE | 2018-09-15 15:06 | CON ---
DATE: 09/15/2018 INDICATIONS: Heroin overdose, sinus tachycardia, positive troponin, abnormal EKG. HISTORY OF PRESENT ILLNESS: This is a 42-year-old man admitted on 09/14 after he took heroin and was found to be unresponsive by his family. He was brought to the Emergency Room, given Narcan. He was found to have sinus tachycardia. He woke up. His EKG is abnormal. Troponin was mildly elevated. He has a history of CHF in the past. He was admitted to telemetry. This morning he feels better. He also has dysuria and a urethral discharge, which is being evaluated. Currently, there is no chest pain or shortness of breath. No orthopnea, PND, syncope, vertigo, palpitations, lightheadedness, fever, chills, cough, sputum production, hemoptysis, abdominal pain, nausea, vomiting, diarrhea, constipation, melena. PAST MEDICAL HISTORY: Notable for an episode of CHF in 2017 in [facility]. He underwent a cardiac catheterization, which apparently disclosed normal coronaries and cardiomyopathy, but we do not have the report, and he is vague about the details. He has a history of TIA, diabetes, hypertension, hyperlipidemia. He is a smoker. There is no history of rheumatic fever, myocardial infarction, angina, stroke or gout. SOCIAL HISTORY: He smokes marijuana. He has used heroin a couple of times. He denies significant alcohol intake. He lives at home with his family. He is ambulatory. MEDICATIONS AT THE TIME OF ADMISSION: None. ALLERGIES: THERE WERE NO MEDICATION ALLERGIES REPORTED. FAMILY HISTORY: Noncontributory. REVIEW OF SYSTEMS: Ten-point review of systems otherwise unremarkable except as noted above. PHYSICAL EXAMINATION: GENERAL: He is a well-developed male lying in bed on telemetry, in no acute distress. VITAL SIGNS: Notable for sinus rhythm, 78 to 98 beats per minute. He is afebrile. Blood pressure is elevated at 143/107, respirations 18-20, O2 sat 96% on room air. HEENT: Exam reveals no neck vein distention, thyromegaly, carotid bruits. Mucous membranes are moist. Conjunctivae pink. NECK: Supple. LUNGS: Lung vargas clear. HEART: Examination of the heart revealed normal first and second heart sounds. There is a soft systolic murmur along the left sternal border. PMI is displaced laterally. ABDOMEN: Soft. Bowel sounds present. No mass, organomegaly, tenderness, rebound or guarding. No CVA tenderness. No palpable abdominal aortic aneurysm. EXTREMITIES: Exam revealed no cyanosis, clubbing or edema. NEUROLOGICAL: He was awake, alert and oriented. PSYCHIATRIC: Normal as to mood and affect. SKIN: Warm and dry. No rash or cellulitis. LABORATORY AND IMAGING: EKG demonstrates sinus rhythm with a rightward axis, LVH, ST-T wave changes, prolonged QT. Chest x-ray reveals patchy right basilar infiltrate, linear atelectasis right lung base, small bilateral pleural effusions, bilateral hilar prominence and cardiomegaly. White count 12,200, repeat 10,800; hemoglobin 14.3; hematocrit 43.3; platelet count normal. PT and INR of 17.7 and 1.5 respectively, PTT 38.3. Electrolytes unremarkable except for a potassium of 3.5, repeat 4.4. BUN and creatinine, normal. LFTs abnormal. CK 138 and 113; troponin 0.15, 0.15 and 0.23. Cholesterol 110, LDL 95, triglycerides 51, HDL low at 18. Procalcitonin 0.35. Urinalysis is abnormal. Toxicology is positive for opiates and amphetamines. Influenza is negative. IMPRESSION: Shabbir Borges is a 42-year-old male, polysubstance abuser, recent heroin user, admitted with unresponsiveness, which responded to Narcan. He has a history of congestive heart failure, underwent cardiac catheterization 2016, apparent cardiomyopathy, but we do not have details. His EKG is abnormal. Troponins are mildly elevated, possibly on the basis of demand ischemia. He has no chest pain or shortness of breath. He is being evaluated for a urethral discharge. He is a smoker. We will check his echocardiogram. In the meantime, he is getting aspirin, Coreg, subcu heparin, Lipitor, nicotine patch, Protonix and Rocephin. He will be treated with antihypertensive medications. His blood sugars are being monitored. He has been cultured. We will monitor I's and O's, labs, troponins. An HIV test is pending. He can be out of bed to chair. I will follow along with you. I will make additional recommendations based on his clinical course. Of course, discontinuation of oral substance abuse should be strongly emphasized during this admission. Dean June MD [facility] # [id number] MTDWillian
[2018-09-16 03:19] LABS: ALB/GLOB RATIO 0.6 (1.1-1.8); ALBUMIN 2.7 g/dL (3.0-4.8); ALT/SGPT 28 U/L (7-56); AST/SGOT 38 U/L (17-59); BLOOD UREA NITROGEN 27 mg/dL (7-21); CALCIUM 8.2 mg/dL (8.4-10.5); GFR NON-AFRICAN AMERICAN > 60
[2018-09-16 03:28] LABS: BASO # 0.03 K/mm3 (0.0-2.0); BASO % 0.3 % (0.0-3.0); EOS # 0.3 (0.0-0.7); EOS % 2.8 % (1.5-5.0); GRAN # 6.06 (1.4-6.5); GRAN % 67.9 % (50.0-68.0); HEMOGLOBIN 14.2 g/dL (14.0-18.0); LYMPH # 1.7 (1.2-3.4); LYMPH % 19.5 % (22.0-35.0); MEAN CELL VOLUME 86.1 fl (80.0-105.0); MEAN CORPUSCULAR HEMOGLOBIN 28.6 pg (25.0-35.0); MEAN CORPUSCULAR HGB CONC 33.3 g/dl (31.0-37.0); MEAN PLATELET VOLUME 9.6 fl (7.0-11.0); MONO # 0.9 (0.1-0.6); MONO % 9.5 % (1.0-6.0); RBC 4.96 10^6/uL (3.5-6.1); RED CELL DISTRIBUTION WIDTH 14.8 % (11.5-14.5); WHITE BLOOD COUNT 8.9 10^3/uL (4.5-11.0)
[2018-09-16 03:54] LABS: TROPONIN I 0.21 ng/mL
[2018-09-16] MEDS: metroNIDAZOLE IV 500 mg/100 ml 500 MG/100 ML BAG IVPB SCH ×3 (05:52→21:00)
[2018-09-16] MEDS: Pantoprazole 40 mg EC Tab PO SCH (05:53)
--- NOTE | 2018-09-16 07:55 | CP.PCM.PN ---
Subjective - Date & Time of Evaluation Date of Evaluation: 09/16/18 Time of Evaluation: 07:00 - Subjective Subjective: Stable on 2R. No CP or SOB. V/S noted. RSR PE: Lungs: clear Cor: S1S2 Abd.: soft Ext.: no edema Neuro.: alert I/O= 980/700 Labs noted. Trop 0.21 BC X2 NG at 24 hrs Echo done: Prelim: Severe LVD. See report. Objective - Vital Signs/Intake and Output Vital Signs (last 24 hours): Temp Pulse Resp BP Pulse Ox 97.6 F 79 18 139/72 100 09/16/18 06:00 09/16/18 06:00 09/16/18 06:00 09/16/18 06:00 09/16/18 06:00 Intake and Output: 09/16/18 09/16/18 06:59 18:59 Intake Total 380 Balance 380 - Medications Medications: Current Medications Aspirin (Aspirin Chewable) 81 mg PO DAILY [facility] Last Admin: 09/15/18 10:05 Dose: 81 mg Atorvastatin Calcium (Lipitor) 10 mg PO DIN [facility] Last Admin: 09/15/18 17:57 Dose: 10 mg Carvedilol (Coreg) 6.25 mg PO BID [facility] Last Admin: 09/15/18 18:00 Dose: 6.25 mg Heparin Sodium (Porcine) (Heparin) 5,000 units SC Q8 [facility]; Protocol Last Admin: 09/16/18 05:53 Dose: 5,000 units Hydralazine HCl (Apresoline) 10 mg IVP Q6 PRN PRN Reason: Systolic Blood Pressure Ceftriaxone Sodium (Rocephin 1 Gram Ivpb) 1 gm in 100 mls @ 100 mls/hr IVPB DAILY [facility]; Protocol Last Admin: 09/15/18 10:06 Dose: 100 mls/hr Metronidazole (Flagyl) 500 mg in 100 mls @ 100 mls/hr IVPB Q8 [facility]; Protocol Last Admin: 09/16/18 05:52 Dose: 100 mls/hr Insulin Human Regular (Humulin R Low) 0 units SC ACHS [facility]; Protocol Last Admin: 09/15/18 22:07 Dose: Not Given Nicotine (Nicoderm Cq) 1 patch TD DAILY [facility] Last Admin: 09/15/18 11:03 Dose: 1 patch Pantoprazole Sodium (Protonix Ec Tab) 40 mg PO 0600 [facility] Last Admin: 09/16/18 05:53 Dose: 40 mg - Labs Labs: 09/16/18 03:00 09/16/18 03:00 PT 17.7 SECONDS (9.4-12.5) H 09/14/18 09:00 INR 1.53 09/14/18 09:00 APTT 38.3 Seconds (25.1-36.5) H 09/14/18 09:00 Assessment and Plan - Assessment and Plan (Free Text) Assessment: Unresponsive state due to heroin abuse Cardiomyopathy with severe LVD [place] [facility] [place] CHF TIA Diabetes HBP HLD Smoker Polysubstance abuse Plan: Increase carvedilol 12.5 BID Add losartan 50/day, Lasix 20/day, KCL 20 tico/day MALINDA diet D/C polysubstance abuse, smoking EP referral for ICD Get cath report [place] [facility] [place]. Out-pt cardiac and medical F/U.
[2018-09-16] MEDS: cefTRIAXone 1 gm 1 GM/100 ML BAG IVPB SCH (10:18)
[2018-09-16] MEDS: Potassium Chloride 20 mEq ER Tab PO SCH (10:18)
[2018-09-16] MEDS: Insulin Reg-LOW-Coverage SC SCH ×4 (10:19→21:49)
--- NOTE | 2018-09-16 12:02 | CP.PCM.PN ---
<Lex Rincon - Last Filed: 09/16/18 12:19> Subjective - Date & Time of Evaluation Date of Evaluation: 09/16/18 Time of Evaluation: 08:40 - Subjective Subjective: Lex Rincon DO, PGY-1 Hospitalist Progress Note for Dr. Sissy Donaldson Patient was seen and examined at bedside this AM. He reports his symptoms of dysuria and discharge have improved. He states he feels better and hopes to be discharged soon. Objective - Vital Signs/Intake and Output Vital Signs (last 24 hours): Temp Pulse Resp BP Pulse Ox 97.6 F 79 18 160/108 H 100 09/16/18 06:00 09/16/18 06:00 09/16/18 06:00 09/16/18 10:15 09/16/18 06:00 Intake and Output: 09/16/18 09/16/18 06:59 18:59 Intake Total 380 Balance 380 - Medications Medications: Current Medications Aspirin (Aspirin Chewable) 81 mg PO DAILY [facility] Last Admin: 09/16/18 10:18 Dose: 81 mg Atorvastatin Calcium (Lipitor) 20 mg PO DIN [facility] Carvedilol (Coreg) 12.5 mg PO BID [facility] Last Admin: 09/16/18 10:18 Dose: 12.5 mg Furosemide (Lasix) 20 mg PO DAILY [facility] Last Admin: 09/16/18 10:15 Dose: 20 mg Heparin Sodium (Porcine) (Heparin) 5,000 units SC Q8 [facility]; Protocol Last Admin: 09/16/18 05:53 Dose: 5,000 units Hydralazine HCl (Apresoline) 10 mg IVP Q6 PRN PRN Reason: Systolic Blood Pressure Ceftriaxone Sodium (Rocephin 1 Gram Ivpb) 1 gm in 100 mls @ 100 mls/hr IVPB DAILY [facility]; Protocol Last Admin: 09/16/18 10:18 Dose: 100 mls/hr Metronidazole (Flagyl) 500 mg in 100 mls @ 100 mls/hr IVPB Q8 [facility]; Protocol Last Admin: 09/16/18 05:52 Dose: 100 mls/hr Insulin Human Regular (Humulin R Low) 0 units SC ACHS [facility]; Protocol Last Admin: 09/16/18 10:19 Dose: Not Given Losartan Potassium (Cozaar) 50 mg PO DAILY [facility] Last Admin: 09/16/18 10:15 Dose: 50 mg Nicotine (Nicoderm Cq) 1 patch TD DAILY [facility] Last Admin: 09/16/18 10:19 Dose: 1 patch Pantoprazole Sodium (Protonix Ec Tab) 40 mg PO 0600 [facility] Last Admin: 09/16/18 05:53 Dose: 40 mg Potassium Chloride (K-Dur 20 Meq Er Tab) 20 meq PO BRK [facility] Last Admin: 09/16/18 10:18 Dose: 20 meq - Labs Labs: 09/16/18 03:00 09/16/18 03:00 PT 17.7 SECONDS (9.4-12.5) H 09/14/18 09:00 INR 1.53 09/14/18 09:00 APTT 38.3 Seconds (25.1-36.5) H 09/14/18 09:00 - Constitutional Appears: Non-toxic, No Acute Distress - Head Exam Head Exam: ATRAUMATIC, NORMOCEPHALIC - Eye Exam Eye Exam: EOMI, Normal appearance, PERRL - ENT Exam ENT Exam: Mucous Membranes Moist - Neck Exam Neck Exam: Full ROM, Normal Inspection - Respiratory Exam Respiratory Exam: Clear to Ausculation Bilateral, NORMAL BREATHING PATTERN. absent: Rales, Rhonchi, Wheezes - Cardiovascular Exam Cardiovascular Exam: REGULAR RHYTHM, RRR, +S1, +S2. absent: Gallop, Rubs, Murmur - GI/Abdominal Exam GI & Abdominal Exam: Soft. absent: Guarding, Tenderness - Extremities Exam Extremities Exam: Full ROM, Normal Inspection - Back Exam Back Exam: NORMAL INSPECTION - Neurological Exam Neurological Exam: Alert, Awake, Oriented x3 - Psychiatric Exam Psychiatric exam: Anxious - Skin Skin Exam: Dry, Intact, Warm Assessment and Plan - Assessment and Plan (Free Text) Assessment: 42 yo M with PMH of CHF, TIA, DM2, and IVDA who was brought in by EMS for heroin OD. EMS stated that his family noticed he was poorly responsive. Patient admits he was taking IV heroin (1 bag) because of severe groin pain. UDS completed was positive for both opiates and amphetamine. In ED, he was also found to have leukocytosis of 12.2 and RLL infiltrate suspicious for aspiration PNA. He is c urrently monitored on telemetry. Plan: 1. Hypertension BP persistently elevated overnight HTN likely 2/2 primary untreated HTN vs recent amphetamine use Per cardiology recs, coreg was increased to 12.5 and losartan 50 daily added Continue to monitor BP on new meds 2. Dysuria/urethritis/Penile discharge Likely 2/2 underlying UTI and/or possible chlamydia or other STI UA with TNTC pyuria, positive LE, large blood Urine cx completed and negative to date HIV negative Chlamydia pending On rocephin and flagyl for coverage of both and aspiration PNA 3. Troponin elevation Likely 2/2 demand ischemia on CHF from tachycardia/HTN from amphetamine use Troponin trended overnight, did not rise Plan per cardiology is to increase coreg Continue to monitor BP, HR closely Cardiology following, recs appreciated 4. Hx CHF Per cardiology, patient has hx of CHF 2/2 cardiomyopathy Per cardiology, echo was completed and showed severe LV dysfunction Plan is for ICD placement Dr. Chappell EP consulted, recs appreciated 5. RLL infiltrate concerning for aspiration PNA Received one dose of broad spectrum vanc/zosyn in ED but switched to rocephin flagyl after UA and CXR completed Currently not complaining of CP, SOB, or cough Monitor for resolution 6. Leukocytosis Likely 2/2 UTI and RLL aspiration PNA Continue to monitor 7. DM2 A1c on this visit 6.6 Patient states he has been attempting to control with diet alone Consider starting patient on metformin at home prior to discharge ISS low coverage while admitted 8. Hx of IVDA Bedside echo completed per cardiology and showed LV dysfunction, no mention of vegetations Continue to high school counselor on importance of d/c drug and tobacco abuse 9. Tobacco abuse Continue patient counseling on importance of smoking cessation DVT/GI PPX: SC heparin/protonix Full Code Diabetic diet Monitor on telemetry Case and plan reviewed and discussed with my attending Dr. Sissy Rincon, DO IM Resident PGY-1 Pager: [phone] <Penny Donaldson R - Last Filed: 09/16/18 16:51> Objective - Vital Signs/Intake and Output Vital Signs (last 24 hours): Temp Pulse Resp BP Pulse Ox 98.6 F 85 18 147/95 H 100 09/16/18 12:00 09/16/18 12:00 09/16/18 12:00 09/16/18 12:00 09/16/18 06:00 Intake and Output: 09/16/18 09/16/18 06:59 18:59 Intake Total 380 Balance 380 - Medications Medications: Current Medications Aspirin (Aspirin Chewable) 81 mg PO DAILY [facility] Last Admin: 09/16/18 10:18 Dose: 81 mg Atorvastatin Calcium (Lipitor) 20 mg PO DIN [facility] Carvedilol (Coreg) 12.5 mg PO BID [facility] Last Admin: 09/16/18 10:18 Dose: 12.5 mg Furosemide (Lasix) 20 mg PO DAILY [facility] Last Admin: 09/16/18 10:15 Dose: 20 mg Heparin Sodium (Porcine) (Heparin) 5,000 units SC Q8 [facility]; Protocol Last Admin: 09/16/18 15:43 Dose: 5,000 units Hydralazine HCl (Apresoline) 10 mg IVP Q6 PRN PRN Reason: Systolic Blood Pressure Ceftriaxone Sodium (Rocephin 1 Gram Ivpb) 1 gm in 100 mls @ 100 mls/hr IVPB DAILY [facility]; Protocol Last Admin: 09/16/18 10:18 Dose: 100 mls/hr Metronidazole (Flagyl) 500 mg in 100 mls @ 100 mls/hr IVPB Q8 [facility]; Protocol Last Admin: 09/16/18 15:42 Dose: 100 mls/hr Insulin Human Regular (Humulin R Low) 0 units SC ACHS [facility]; Protocol Last Admin: 09/16/18 15:43 Dose: Not Given Losartan Potassium (Cozaar) 50 mg PO DAILY [facility] Last Admin: 09/16/18 10:15 Dose: 50 mg Nicotine (Nicoderm Cq) 1 patch TD DAILY [facility] Last Admin: 09/16/18 10:19 Dose: 1 patch Pantoprazole Sodium (Protonix Ec Tab) 40 mg PO 0600 [facility] Last Admin: 09/16/18 05:53 Dose: 40 mg Potassium Chloride (K-Dur 20 Meq Er Tab) 20 meq PO BRK [facility] Last Admin: 09/16/18 10:18 Dose: 20 meq - Labs Labs: 09/16/18 03:00 09/16/18 03:00 PT 17.7 SECONDS (9.4-12.5) H 09/14/18 09:00 INR 1.53 09/14/18 09:00 APTT 38.3 Seconds (25.1-36.5) H 09/14/18 09:00 Attending/Attestation - Attestation I have personally seen and examined this patient.: Yes I have fully participated in the care of the patient.: Yes I have reviewed all pertinent clinical information, including history, physical exam and plan: Yes Notes (Text): Patient seen and examined by me with resident at 8:50AM with resident 09/16/18. Case including HPI, physical exam, and assessment and plan discussed with resident. Agree with above with following additions/corrections. Patient is a 42-year-old male with past medical history significant for type 2 diabetes, hypertension, questionable CHF, noncompliance with all medications, tobacco abuse, and polysubstance abuse including IV heroin and marijuana that presented to the emergency room after using IV heroin and being lethargic. Patient states he is much better today. States dysuria has resolved. Patient states he is no longer having difficulty urinating. No penile discharge. No chest pain or shortness of breath. No headaches or dizziness. Patient denies nausea, vomiting, or abdominal pain. No diarrhea or constipation. Physical exam: General: Awake and alert sitting up in bed in no distress HEENT: Normocephalic atraumatic. Extraocular muscles intact. Pupils equal and reactive. No scleral icterus. Oropharynx is pink and moist. No pharyngeal erythema or exudate appreciated. Neck is supple. Cardiovascular: Normal rhythm. Normal S1, S2. No murmurs, rubs, or gallops appreciated Pulmonary: Normal respiratory effort. No rhonchi, rales, or wheezing appreciated Gastrointestinal: Soft, nondistended. Nontender. Positive bowel sounds all 4 quadrants, no guarding. Musculoskeletal: Moves all extremities, no calf tenderness. No edema appreciated Central nervous system: AAOx3. CN2-12 grossly intact Dermatologic: Skin warm and dry. Assessment and plan: Patient is a 42-year-old male with past medical history significant for type 2 diabetes, hypertension, questionable CHF, noncompliance with all medications, tobacco abuse, and polysubstance abuse including IV heroin and marijuana that presented to the emergency room after using IV heroin and being lethargic. 1. Elevated troponin. History of systolic CHF. Patient had bedside echo yesterday morning, unable to find results. Will need to call echo for results. Cardiology following, recommendations appreciated. Per cardiology, preliminary report shows severe left ventricular dysfunction. Patient will likely need AICD as outpatient. Will consult purchasing associate for possible need of LifeVest. Lipid panel with the low HDL. Hemoglobin A1c 6.8. Continue on aspirin, Lipitor, and Coreg. Lasix and Cozaar added Continue to monitor on telemetry 2. Accelerated hypertension. Improved. Coreg dose increased to 12.5 mg twice a day. Lasix 20mg and Cozaar 50 mg daily added. Cardiology following, recommendati ons appreciated. 3. Heroin overdose and lethargy. Status post Narcan. Resolved. UDS positive for opiates and amphetamines. Discussed with patient. Patient counseled at length on cessation. 4. Dysuria. UA shows urine infection. Pending results for chlamydia. Continue on Rocephin. Urine culture shows no growth. 5. Leukocytosis. May be secondary to UTI and possible aspiration pneumonia. Leukocytosis resolved. Chest x-ray per radiologist shows patchy right basilar infiltrate, linear atelectasis right lung base, small bibasilar pleural effusions, bilateral hilar prominence, cardiomegaly. Patient may have had aspiration when vomiting after giving Narcan. Continue on Rocephin and Flagyl. Pro-calcitonin 0.35. 6. Diabetes. Hemoglobin A1c 6.8. Continue insulin sliding scale. Continue to monitor Accu-Cheks. Patient does not take any medications at home. Patient should be placed on diabetic medications prior to discharge. 7. Tobacco abuse. Patient counseled on cessation. 8. GI/DVT prophylaxis. Protonix/heparin Case was discussed in detail with the patient regarding current diagnosis and treatment plan, all questions answered.
[2018-09-17] MEDS: Pantoprazole 40 mg EC Tab PO SCH (05:28)
[2018-09-17] MEDS: metroNIDAZOLE IV 500 mg/100 ml 500 MG/100 ML BAG IVPB SCH (05:28)
[2018-09-17 06:51] LABS: BASO # 0.02 K/mm3 (0.0-2.0); BASO % 0.3 % (0.0-3.0); EOS # 0.2 (0.0-0.7); EOS % 2.9 % (1.5-5.0); GRAN # 4.67 (1.4-6.5); GRAN % 61.2 % (50.0-68.0); LYMPH # 1.6 (1.2-3.4); LYMPH % 21.1 % (22.0-35.0); MEAN CELL VOLUME 86.6 fl (80.0-105.0); MEAN CORPUSCULAR HEMOGLOBIN 28.5 pg (25.0-35.0); MEAN CORPUSCULAR HGB CONC 32.9 g/dl (31.0-37.0); MEAN PLATELET VOLUME 9.6 fl (7.0-11.0); MONO # 1.1 (0.1-0.6); MONO % 14.5 % (1.0-6.0); RBC 4.91 10^6/uL (3.5-6.1); WHITE BLOOD COUNT 7.6 10^3/uL (4.5-11.0)
[2018-09-17 07:35] LABS: BLOOD UREA NITROGEN 26 mg/dL (7-21); GFR NON-AFRICAN AMERICAN > 60
[2018-09-17 07:36] LABS: ALB/GLOB RATIO 0.6 (1.1-1.8); ALBUMIN 2.7 g/dL (3.0-4.8); ALT/SGPT 29 U/L (7-56); AST/SGOT 37 U/L (17-59)
[2018-09-17] MEDS: Potassium Chloride 20 mEq ER Tab PO SCH (08:20)
[2018-09-17] MEDS: Insulin Reg-LOW-Coverage SC SCH ×4 (08:20→21:40)
--- NOTE | 2018-09-17 08:25 | CP.PCM.PN ---
Subjective - Date & Time of Evaluation Date of Evaluation: 09/17/18 Time of Evaluation: 07:00 - Subjective Subjective: Stable on 2R. No CP or SOB. V/S noted. RSR PE: Lungs: clear Cor: S1S2 Abd.: soft Ext.: no edema Neuro.: alert I/O= 720/800 recorded Labs noted: CBC OK, K+= 3.9, Cr.= 1.1, Na+= 135 BC X2 NG at 48 hrs. Urine C+S: NG Echo: Severe LVD. Mild AI, Severe TR and PH. See report. Objective - Vital Signs/Intake and Output Vital Signs (last 24 hours): Temp Pulse Resp BP Pulse Ox 98 F 71 20 151/96 H 99 09/17/18 05:49 09/17/18 05:49 09/17/18 05:49 09/17/18 05:49 09/17/18 05:49 Intake and Output: 09/17/18 09/17/18 06:59 18:59 Intake Total 720 Output Total 800 Balance -80 - Medications Medications: Current Medications Aspirin (Aspirin Chewable) 81 mg PO DAILY [facility] Last Admin: 09/16/18 10:18 Dose: 81 mg Atorvastatin Calcium (Lipitor) 20 mg PO DIN [facility] Last Admin: 09/16/18 18:33 Dose: 20 mg Carvedilol (Coreg) 12.5 mg PO BID [facility] Last Admin: 09/16/18 10:18 Dose: 12.5 mg Furosemide (Lasix) 20 mg PO DAILY [facility] Last Admin: 09/16/18 10:15 Dose: 20 mg Heparin Sodium (Porcine) (Heparin) 5,000 units SC Q8 [facility]; Protocol Last Admin: 09/17/18 05:28 Dose: 5,000 units Hydralazine HCl (Apresoline) 10 mg IVP Q6 PRN PRN Reason: Systolic Blood Pressure Ceftriaxone Sodium (Rocephin 1 Gram Ivpb) 1 gm in 100 mls @ 100 mls/hr IVPB DAILY [facility]; Protocol Last Admin: 09/16/18 10:18 Dose: 100 mls/hr Metronidazole (Flagyl) 500 mg in 100 mls @ 100 mls/hr IVPB Q8 [facility]; Protocol Last Admin: 09/17/18 05:28 Dose: 100 mls/hr Insulin Human Regular (Humulin R Low) 0 units SC ACHS [facility]; Protocol Last Admin: 09/16/18 21:49 Dose: Not Given Losartan Potassium (Cozaar) 50 mg PO DAILY [facility] Last Admin: 09/16/18 10:15 Dose: 50 mg Nicotine (Nicoderm Cq) 1 patch TD DAILY [facility] Last Admin: 09/16/18 10:19 Dose: 1 patch Pantoprazole Sodium (Protonix Ec Tab) 40 mg PO 0600 [facility] Last Admin: 09/17/18 05:28 Dose: 40 mg Potassium Chloride (K-Dur 20 Meq Er Tab) 20 meq PO BRK [facility] Last Admin: 09/16/18 10:18 Dose: 20 meq - Labs Labs: 09/17/18 05:45 09/17/18 05:45 PT 17.7 SECONDS (9.4-12.5) H 09/14/18 09:00 INR 1.53 09/14/18 09:00 APTT 38.3 Seconds (25.1-36.5) H 09/14/18 09:00 Assessment and Plan - Assessment and Plan (Free Text) Assessment: Unresponsive state due to heroin abuse Cardiomyopathy with severe LVD s/p cath at [facility] ~ 12/06 CHF TIA Diabetes HBP HLD Smoker Polysubstance abuse Plan: Continue carvedilol 12.5 BID, losartan 50/day, Lasix 20/day, KCL 20 tico/day MALINDA diet D/C polysubstance abuse, smoking EP referral for ICD Please get cath report from [facility] 12/06 and let me know when you have it. Out-pt cardiac and medical F/U.
[2018-09-17] MEDS: cefTRIAXone 1 gm 1 GM/100 ML BAG IVPB SCH (10:47)
--- NOTE | 2018-09-17 15:58 | CP.PCM.PN ---
<Lex Rincon - Last Filed: 09/17/18 16:02> Subjective - Date & Time of Evaluation Date of Evaluation: 09/17/18 Time of Evaluation: 09:45 - Subjective Subjective: Lex Rincon DO, PGY-1 Hospitalist Progress Note for Dr. Rodriges Patient was seen and examined at bedside this AM. He offers no new complaints but states he still has some dysuria. The urethral discharge has resolved. He states that the pelvic pain he had before has improved. He denies fever/chills, CP, palpitations, SOB, or nausea/vomiting. Objective - Vital Signs/Intake and Output Vital Signs (last 24 hours): Temp Pulse Resp BP Pulse Ox 98 F 76 21 136/77 99 09/17/18 12:00 09/17/18 12:00 09/17/18 12:00 09/17/18 15:00 09/17/18 05:49 Intake and Output: 09/17/18 09/17/18 06:59 18:59 Intake Total 720 Output Total 800 Balance -80 - Medications Medications: Current Medications Aspirin (Aspirin Chewable) 81 mg PO DAILY [facility] Last Admin: 09/17/18 10:46 Dose: 81 mg Atorvastatin Calcium (Lipitor) 20 mg PO DIN [facility] Last Admin: 09/16/18 18:33 Dose: 20 mg Carvedilol (Coreg) 12.5 mg PO BID [facility] Last Admin: 09/17/18 10:46 Dose: 12.5 mg Doxycycline Hyclate (Doryx) 100 mg PO Q12 [facility]; Protocol Furosemide (Lasix) 20 mg PO DAILY [facility] Last Admin: 09/17/18 10:46 Dose: 20 mg Heparin Sodium (Porcine) (Heparin) 5,000 units SC Q8 [facility]; Protocol Last Admin: 09/17/18 05:28 Dose: 5,000 units Hydralazine HCl (Apresoline) 10 mg IVP Q6 PRN PRN Reason: Systolic Blood Pressure Insulin Human Regular (Humulin R Low) 0 units SC ACHS [facility]; Protocol Last Admin: 09/17/18 08:20 Dose: Not Given Losartan Potassium (Cozaar) 50 mg PO DAILY [facility] Last Admin: 09/17/18 10:46 Dose: 50 mg Metronidazole (Flagyl) 500 mg PO Q8 [facility] Nicotine (Nicoderm Cq) 1 patch TD DAILY [facility] Last Admin: 09/17/18 10:47 Dose: 1 patch Pantoprazole Sodium (Protonix Ec Tab) 40 mg PO 0600 [facility] Last Admin: 09/17/18 05:28 Dose: 40 mg Potassium Chloride (K-Dur 20 Meq Er Tab) 20 meq PO BRK [facility] Last Admin: 09/17/18 08:20 Dose: 20 meq - Labs Labs: 09/17/18 05:45 09/17/18 05:45 PT 17.7 SECONDS (9.4-12.5) H 09/14/18 09:00 INR 1.53 09/14/18 09:00 APTT 38.3 Seconds (25.1-36.5) H 09/14/18 09:00 - Constitutional Appears: Non-toxic, No Acute Distress - Head Exam Head Exam: ATRAUMATIC, NORMOCEPHALIC - Eye Exam Eye Exam: EOMI, Normal appearance, PERRL - ENT Exam ENT Exam: Mucous Membranes Moist - Neck Exam Neck Exam: Full ROM, Normal Inspection - Respiratory Exam Respiratory Exam: Clear to Ausculation Bilateral, NORMAL BREATHING PATTERN. absent: Accessory Muscle Use, Rales, Rhonchi, Wheezes, Respiratory Distress - Cardiovascular Exam Cardiovascular Exam: REGULAR RHYTHM, RRR, +S1, +S2. absent: Gallop, Rubs, Murmur - GI/Abdominal Exam GI & Abdominal Exam: Soft, Normal Bowel Sounds. absent: Guarding, Tenderness - Extremities Exam Extremities Exam: Full ROM. absent: Tenderness Additional comments: trace pitting edema to LE b/l - Back Exam Back Exam: NORMAL INSPECTION - Neurological Exam Neurological Exam: Alert, Awake, Oriented x3 - Psychiatric Exam Psychiatric exam: Normal Affect, Normal Mood - Skin Skin Exam: Dry, Intact, Warm Additional comments: diffuse xerosis cutis Assessment and Plan - Assessment and Plan (Free Text) Assessment: 42 yo M with PMH of CHF, TIA, DM2, and IVDA who was brought in by EMS for heroin OD. EMS stated that his family noticed he was poorly responsive. Patient admits he was taking IV heroin (1 bag) because of severe groin pain. UDS completed was positive for both opiates and amphetamine. In ED, he was also found to have leukocytosis of 12.2 and RLL infiltrate suspicious for aspiration PNA. This AM he offers no new complaints and states his dysuria and urethral discharge are improved. Plan: 1. Hypertension BP still persistently elevated overnight HTN likely 2/2 primary untreated HTN vs recent amphetamine use Continue coreg 12.5, losartan 50 Will add hydralazine 25 mg PRN 2. Dysuria/urethritis/Penile discharge Likely 2/2 underlying UTI and/or possible chlamydia or other STI UA with TNTC pyuria, positive LE, large blood Urine cx completed and negative to date HIV negative Chlamydia pending, [facility] laboratory called yesterday, specimen was received last Monday and is a send out On rocephin and flagyl for coverage of both and aspiration PNA Will add doxycycline 100 BID for additional coverage of possible chlamydia 3. Troponin elevation Likely 2/2 demand ischemia on CHF from tachycardia/HTN from amphetamine use Troponin trended and did not rise Patient currently denies CP, SOB Continue to monitor BP, HR closely Cardiology following, recs appreciated 4. Hx CHF Per cardiology, patient has hx of CHF 2/2 cardiomyopathy Per cardiology, echo was completed and showed severe LV dysfunction Echo report obtained, showed EF severely reduced at 20-25% Prior cath reports from [facility] obtained today, EP and primary cardiology notified EP consulted for possible placement of vest and/or permanent ICD EP following, recs appreciated 5. RLL infiltrate concerning for aspiration PNA Received one dose of broad spectrum vanc/zosyn in ED but switched to rocephin flagyl after UA and CXR completed Currently not complaining of CP, SOB, or cough Monitor for resolution 6. Leukocytosis Likely 2/2 UTI and RLL aspiration PNA Down to 7.7 today Continue to monitor serial CBC 7. DM2 A1c on this visit 6.6 Patient states he has been attempting to control with diet alone Consider starting patient on metformin or other oral antihyperglycemics for home prior to discharge ISS low coverage while admitted 8. Hx IVDA Bedside echo completed per cardiology and showed LV dysfunction, no mention of vegetations Continue to funeral planning counselor on importance of d/c drug and tobacco abuse 9. Tobacco abuse Continue patient counseling on importance of smoking cessation DVT/GI PPX: SC heparin/protonix Full Code Diabetic diet Monitor on telemetry Case and plan reviewed and discussed with my attending Dr. Antelmo Rincon, IM Resident PGY-1 Pager: [phone] <Leyla Rodriges - Last Filed: 09/17/18 18:56> Objective - Vital Signs/Intake and Output Vital Signs (last 24 hours): Temp Pulse Resp BP Pulse Ox 98.3 F 72 21 144/99 H 99 09/17/18 17:33 09/17/18 17:33 09/17/18 17:33 09/17/18 17:33 09/17/18 05:49 Intake and Output: 09/17/18 09/17/18 06:59 18:59 Intake Total 720 Output Total 800 Balance -80 - Medications Medications: Current Medications Aspirin (Aspirin Chewable) 81 mg PO DAILY [facility] Last Admin: 09/17/18 10:46 Dose: 81 mg Atorvastatin Calcium (Lipitor) 20 mg PO DIN [facility] Last Admin: 09/16/18 18:33 Dose: 20 mg Carvedilol (Coreg) 12.5 mg PO BID [facility] Last Admin: 09/17/18 10:46 Dose: 12.5 mg Doxycycline Hyclate (Doryx) 100 mg PO Q12 [facility]; Protocol Last Admin: 09/17/18 15:47 Dose: 100 mg Furosemide (Lasix) 20 mg PO DAILY [facility] Last Admin: 09/17/18 10:46 Dose: 20 mg Heparin Sodium (Porcine) (Heparin) 5,000 units SC Q8 [facility]; Protocol Last Admin: 09/17/18 15:48 Dose: 5,000 units Hydralazine HCl (Apresoline) 10 mg IVP Q6 PRN PRN Reason: Systolic Blood Pressure Ceftriaxone Sodium (Rocephin 1 Gram Ivpb) 1 gm in 100 mls @ 100 mls/hr IVPB DAILY [facility]; Protocol Insulin Human Regular (Humulin R Low) 0 units SC ACHS [facility]; Protocol Last Admin: 09/17/18 15:45 Dose: Not Given Losartan Potassium (Cozaar) 50 mg PO DAILY [facility] Last Admin: 09/17/18 10:46 Dose: 50 mg Metronidazole (Flagyl) 500 mg PO Q8 [facility] Last Admin: 09/17/18 15:48 Dose: 500 mg Nicotine (Nicoderm Cq) 1 patch TD DAILY [facility] Last Admin: 09/17/18 10:47 Dose: 1 patch Pantoprazole Sodium (Protonix Ec Tab) 40 mg PO 0600 [facility] Last Admin: 09/17/18 05:28 Dose: 40 mg Potassium Chloride (K-Dur 20 Meq Er Tab) 20 meq PO BRK [facility] Last Admin: 09/17/18 08:20 Dose: 20 meq - Labs Labs: 09/17/18 05:45 09/17/18 05:45 PT 17.7 SECONDS (9.4-12.5) H 09/14/18 09:00 INR 1.53 09/14/18 09:00 APTT 38.3 Seconds (25.1-36.5) H 09/14/18 09:00 Attending/Attestation - Attestation I have personally seen and examined this patient.: Yes I have fully participated in the care of the patient.: Yes I have reviewed all pertinent clinical information, including history, physical exam and plan: Yes Notes (Text): 09/17/18 18:46 attending note; Patient seen and examined with resident. Patient denies any fever, chills. Denies any chest pain, shortness of breath. Denies any abdominal pain. Tolerating diet well. Denies any urinary symptoms. Patient is a 42-year-old male with past medical history significant for type 2 diabetes, hypertension, CHF, noncompliance with all medications, tobacco abuse, and polysubstance abuse including IV heroin and marijuana that presented to the emergency room after using IV heroin and being lethargic. 1.Altered mental status and lethargy; secondary to heroin/drug abuse. Currently patient is alert. Complete Drug abuse cessation strongly advised. 2. Elevated troponin. Cardiology evaluation appreciated. patient with severe cardiomyopathy. echocardiogram showed ejection fraction of 25%. patient had cardiac cath in 2017 at [facility]. Medical records requested. Case discussed with [employer] . Continue on aspirin, Lipitor, and Coreg. Lasix and Cozaar added Continue to monitor on telemetry. 3. hypertension; blood pressure is improving slowly.continue Coreg, losartan, Lasix. Continue IV hydralazine when necessary. 4. polysubstance abuse;. UDS positive for opiates and amphetamines. Discussed with patient. Patient counseled at length on cessation. 5. Dysuria. resolved. Pending results for chlamydia. Continue on Rocephin and Flagyl. By mouth doxycycline added. Urine culture shows no growth. 6. Leukocytosis. resolved. patient is afebrile and nontoxic. Chest x-ray shows patchy right basilar infiltrate, linear atelectasis right lung base, small bibasilar pleural effusions, bilateral hilar prominence, c ardiomegaly. 7. Diabetes. Hemoglobin A1c 6.8. diabetic education given. 8. Tobacco abuse. Patient counseled on cessation. 9. GI/DVT prophylaxis. Protonix/heparin Upon discharge the patient will follow up with PMD . patient needs close Follow-up with cardiology. The diagnosis, treatment options discussed with patient in detail.
[2018-09-18 02:31] VITALS: RESP 20
--- NOTE | 2018-09-18 05:04 | CON ---
DATE: 09/17/2018 INPATIENT ELECTROPHYSIOLOGY CONSULTATION REFERRING PHYSICIAN: Penny Donaldson DO as well as Dean June MD. REASON FOR EVALUATION: 1. Dilated cardiomyopathy. 2. Hypertension. 3. Substance abuse. Thank you for this consult. HISTORY OF PRESENT ILLNESS: Mr. Shabbir Borges is a 42-year-old [place] male with past medical history significant for uncontrolled diabetes, hypertension, EtOH abuse, crystal meth use, heroin abuse, and smoking who previously had had prior admissions to [facility] with altered mental status, respiratory failure, hypertensive urgency, acute decompensative heart failure diagnosed at that time with dilated cardiomyopathy, presents to [facility] on 09/15/2018 with altered mental status, found unresponsive, the patient was administered Narcan in the Emergency Department with resolution of his obtunded state. Patient had been found to be in sinus tachycardia with abnormal EKG. He was seen in consultation by Dr. June who had ordered and he underwent a 2D echocardiogram, which documented severe LV dysfunction. As mentioned previously, patient did present with hypertensive urgency, acute decompensated heart failure, and positive troponins to [facility] in December 2017. Patient had bilateral consolidation on chest x-ray, evidence of alcoholic hepatitis, as well as rhabdomyolysis. Patient's condition gradually did improve. He was also given Ativan, which he did not react well to in the acute care setting with prolonged obtunded episode. Cardiac catheterization was performed on 01/02/2018, which revealed nonobstructive coronary disease with a severely impaired ejection fraction. Patient ultimately was titrated on his medical therapy and was subsequently discharged. SOCIAL HISTORY: Significant for EtOH abuse and marijuana. 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 MEDICATIONS: On admission, patient had not been taking any of his medications. At the time of admission, patient had not been on medical therapy. FAMILY HISTORY: Noncontributory. REVIEW OF SYSTEMS: Patient previously had no chest pain, shortness of breath, orthopnea, prior syncope, no vertigo, palpitations, lightheadedness, unexplained syncope, hemoptysis, abdominal pain, nausea, vomiting, diarrhea, constipation, or melena. Remainder of the review of systems has been within normal limits. ALLERGIES: ALLERGY TO ATIVAN, WHICH CAUSES SIGNIFICANT OBTUNDED STATUS. PHYSICAL EXAMINATION: VITAL SIGNS: Temperature is 98.3, pulse is 72, blood pressure is 144/99, mean arterial pressure of 114, and respiratory rate of 21. GENERAL: He is a poorly kempt, diminutive [place] male in no acute distress. Able to speak in complete sentences. HEENT: Examination of his head is normocephalic and atraumatic. There is no mason facial asymmetry. Mucous membranes appear to be moist. NECK: Supple. No jugular venous distension. No carotid bruits. CHEST: Clear to auscultation bilaterally. CARDIOVASCULAR: Regular rate and rhythm, S1 and S2. PMI appears to be displaced. ABDOMEN: Soft, nontender, and nondistended. Positive bowel sounds. EXTREMITIES: No cyanosis, clubbing, or edema is noted. LABORATORY DATA: On review of relevant lab work, patient has a white count initially of 12.2 which subsequently came down to 7.6 today, H and H of 14 and 42.5, platelet count of 280. Sodium is 135, potassium is 3.9, BUN and creatinine are 26 and 1.1, glucose of 152, ALT and AST of 37 and 29 respectively, alk phos of 174, albumin of 2.7. Echocardiogram has been performed, results are pending. EKG, which was done on 09/14/2018 shows sinus tachycardia at 127 beats per minute. There is normal axis across the precordium. There does appear to be left atrial abnormality. Normal RV progression. There is an intraventricular conduction delay with a QRS duration of 102 milliseconds. QT interval is 328. There are ST depressions in the lateral precordial leads. CURRENT MEDICATIONS: Include aspirin 81 mg p.o. daily, atorvastatin 20 mg p.o. daily, carvedilol 12.5 mg p.o. daily, ceftriaxone 1 g daily, Lasix 20 mg daily, hydralazine 10 mg IV push p.r.n. elevated blood pressure, losartan 50 mg p.o. daily, and NicoDerm CQ patch. ASSESSMENT AND PLAN: 1. Dilated cardiomyopathy. Patient has a nonischemic cardiomyopathy. Patient had a left heart catheterization earlier this year at [facility], which did not show significant coronary obstruction. Patient's cardiomyopathy is likely secondary to multiple factors which include uncontrolled hypertension, illicit drug use, and diabetes. At this point, I have discussed with him the risk of sudden cardiac and dilated cardiomyopathy being tenfold higher than the general population. Patient continues to take illicit drugs and be noncompliant with medications. He understands his current condition and the effects of his destructive behavior. I have discussed with him the possibility of a LifeVest for primary prevention of sudden cardiac . I have also discussed with him the option with the possibility of an implantable defibrillator for primary prevention of sudden cardiac . At this point, I have talked to him about these options in detail at this point. He himself has made these options "off the table." It is my opinion with the patient continuing to conduct himself in this manner, implanting a defibrillator in this gentleman is of unclear benefit. He is at this point encouraged to be maximized on medical therapy. He should live with adequate blood pressure management of beta blockade and should be maximized on beta jodi therapy, angiotensin receptor blockade may even benefit from afterload reduction in the form of nitrates and hydralazine. This titration should be performed prior to him being discharged. I did licensed mental health counselor him at length to avoid further drug use, continued compliance with medication and diet. He should follow up with the general medical clinic if he has stopped from doing drugs, continue taking his medications and he has had adequate followup, a 2D echocardiogram could be done in 4-6 months. If there is still significant left ventricular dysfunction despite maximum medical therapy, we may consider an implantable defibrillator for primary prevention of sudden cardiac . He understands these instructions clearly and is agreeable. Therefore, no plans will be made for LifeVest evaluation or further plan for a defibrillator at this time. 2. Hypertension, which appears to be quite resistant, maximizing medical therapy is advised. 3. Substance abuse, which he should certainly refrain from, social support can and should be provided. Thank you for allowing me to participate in the care of your patient. Please do not hesitate to call for any questions in regards to his care. Hima Bruner MD
[2018-09-18] MEDS: Pantoprazole 40 mg EC Tab PO SCH (05:41)
[2018-09-18 06:39] VITALS: O2SAT 98
[2018-09-18] MEDS: Insulin Reg-LOW-Coverage SC SCH ×2 (09:54→13:05)
[2018-09-18] MEDS: Potassium Chloride 20 mEq ER Tab PO SCH (09:56)
[2018-09-18] MEDS ORDERED: cefTRIAXone 1 gm 1 GM/100 ML BAG IVPB SCH (10:00)
[2018-09-18 10:29] LABS: BASO # 0.04 K/mm3 (0.0-2.0); BASO % 0.5 % (0.0-3.0); EOS # 0.2 (0.0-0.7); EOS % 2.6 % (1.5-5.0); GRAN # 4.87 (1.4-6.5); HEMOGLOBIN 15.2 g/dL (14.0-18.0); LYMPH % 24.5 % (22.0-35.0); MEAN CELL VOLUME 85.9 fl (80.0-105.0); MEAN CORPUSCULAR HGB CONC 33.7 g/dl (31.0-37.0); MEAN PLATELET VOLUME 9.2 fl (7.0-11.0); MONO % 12.4 % (1.0-6.0); RBC 5.25 10^6/uL (3.5-6.1); RED CELL DISTRIBUTION WIDTH 15.1 % (11.5-14.5); WHITE BLOOD COUNT 8.1 10^3/uL (4.5-11.0)
[2018-09-18 10:42] LABS: ALB/GLOB RATIO 0.6 (1.1-1.8); ALBUMIN 2.9 g/dL (3.0-4.8); ALT/SGPT 27 U/L (7-56); AST/SGOT 41 U/L (17-59); BLOOD UREA NITROGEN 21 mg/dL (7-21); CALCIUM 8.3 mg/dL (8.4-10.5); GFR NON-AFRICAN AMERICAN > 60
--- NOTE | 2018-09-18 16:02 | CP.PCM.DIS ---
Addendum entered and electronically signed by eLx Rincon DO 09/20/18 13:47: Patient's gonorrhea test came back positive. Called patient, verified he was speaking, and informed him of his positive test result. Addendum entered and electronically signed by Lex Rincon DO 09/18/18 16:07: Mr. Perez troponin levels were also found to be mildly elevated throughout his admission. Per cardiology, this was likely 2/2 demand ischemia from recent methamphetamine use and/or HTN. Levels were trended appropriately. Cardiology was following closely. Recommended further follow up of this with patient's PMD on discharge. Original Note: <Lex Rincon - Last Filed: 09/18/18 16:06> Provider - Provider Date of Admission: 09/14/18 07:59 Attending physician: Leyla Rodriges MD Consults: Cardio: Shaylee EP: Ta Time Spent in preparation of Discharge (in minutes): 40 Diagnosis - Discharge Diagnosis (1) Elevated troponin Status: Resolved (2) Cardiomyopathy Status: Chronic (3) CHF (congestive heart failure) Status: Chronic (4) Heroin overdose Status: Acute (5) Hypertensive emergency Status: Acute (6) Amphetamine abuse Status: Acute Hospital Course - Lab Results Lab Results: Micro Results 09/14/18 09:00 Blood-Venous Blood Culture - Preliminary NO GROWTH AFTER 4 DAYS 09/14/18 08:45 Blood-Venous Blood Culture - Preliminary NO GROWTH AFTER 4 DAYS 09/14/18 22:45 Urine Urine Culture - Final No Growth (<1,000 CFU/ML) 09/14/18 23:18 Urine Urine Culture - Final No Growth (<1,000 CFU/ML) Most Recent Lab Values WBC 8.1 10^3/uL (4.5-11.0) 09/18/18 10:15 RBC 5.25 10^6/uL (3.5-6.1) 09/18/18 10:15 Hgb 15.2 g/dL (14.0-18.0) 09/18/18 10:15 Hct 45.1 % (42.0-52.0) 09/18/18 10:15 MCV 85.9 fl (80.0-105.0) 09/18/18 10:15 MCH 29.0 pg (25.0-35.0) 09/18/18 10:15 MCHC 33.7 g/dl (31.0-37.0) 09/18/18 10:15 RDW 15.1 % (11.5-14.5) H 09/18/18 10:15 Plt Count 295 10^3/uL (120.0-450.0) 09/18/18 10:15 MPV 9.2 fl (7.0-11.0) 09/18/18 10:15 Gran % 60.0 % (50.0-68.0) 09/18/18 10:15 Lymph % (Auto) 24.5 % (22.0-35.0) 09/18/18 10:15 [place] % (Auto) 12.4 % (1.0-6.0) H 09/18/18 10:15 Eos % (Auto) 2.6 % (1.5-5.0) 09/18/18 10:15 Baso % (Auto) 0.5 % (0.0-3.0) 09/18/18 10:15 Gran # 4.87 (1.4-6.5) 09/18/18 10:15 Lymph # (Auto) 2.0 (1.2-3.4) 09/18/18 10:15 [place] # (Auto) 1.0 (0.1-0.6) H 09/18/18 10:15 Eos # (Auto) 0.2 (0.0-0.7) 09/18/18 10:15 Baso # (Auto) 0.04 K/mm3 (0.0-2.0) 09/18/18 10:15 PT 17.7 SECONDS (9.4-12.5) H 09/14/18 09:00 INR 1.53 09/14/18 09:00 APTT 38.3 Seconds (25.1-36.5) H 09/14/18 09:00 Sodium 135 mmol/L (132-148) 09/18/18 10:15 Potassium 4.2 mmol/L (3.6-5.0) 09/18/18 10:15 Chloride 104 mmol/L (98-107) 09/18/18 10:15 Carbon Dioxide 23 mmol/L (21-33) 10/30/18 10:15 Anion Gap 12 (10-20) 09/18/18 10:15 BUN 21 mg/dL (7-21) 09/18/18 10:15 Creatinine 0.9 mg/dl (0.8-1.5) 09/18/18 10:15 Est GFR ( Amer) > 60 09/18/18 10:15 Est GFR (Non-Af Amer) > 60 09/18/18 10:15 POC Glucose (mg/dL) 199 mg/dL (65-110) H 09/18/18 11:58 Random Glucose 94 mg/dL (70-110) 09/18/18 10:15 Hemoglobin A1c 6.8 % (4.2-6.5) H 09/14/18 04:10 Calcium 8.3 mg/dL (8.4-10.5) L 09/18/18 10:15 Phosphorus 3.3 mg/dL (2.5-4.5) 09/16/18 03:00 Magnesium 1.7 mg/dL (1.7-2.2) 09/16/18 03:00 Total Bilirubin 1.0 mg/dL (0.2-1.3) 09/18/18 10:15 Direct Bilirubin 1.7 mg/dL (0.0-0.4) H 09/14/18 06:35 AST 41 U/L (17-59) 09/18/18 10:15 ALT 27 U/L (7-56) 09/18/18 10:15 Alkaline Phosphatase 184 U/L (38-126) H 09/18/18 10:15 Lactate Dehydrogenase 628 U/L (333-699) 09/15/18 05:30 Total Creatine Kinase 74 U/L (35-230) 09/15/18 05:30 Troponin I 0.21 ng/mL H* 09/16/18 03:00 Total Protein 7.9 g/dL (5.8-8.3) 09/18/18 10:15 Albumin 2.9 g/dL (3.0-4.8) L 09/18/18 10:15 Globulin 5.0 gm/dL 09/18/18 10:15 Albumin/Globulin Ratio 0.6 (1.1-1.8) L 09/18/18 10:15 Triglycerides 51 mg/dL (35-160) 09/14/18 06:35 Cholesterol 110 mg/dL (130-200) L 09/14/18 06:35 LDL Cholesterol Direct 95 mg/dL (0-129) 09/14/18 06:35 HDL Cholesterol 18 mg/dL (29-60) L 09/14/18 06:35 Procalcitonin 0.35 NG/ML (0.19-0.49) 09/14/18 06:35 Urine Color Yellow (YELLOW) 09/14/18 13:33 Urine Appearance Turbid (CLEAR) 09/14/18 13:33 Urine pH 7.5 (4.7-8.0) 09/14/18 13:33 Ur Specific [place] 1.020 (1.005-1.035) 09/14/18 13:33 Urine Protein >=300 mg/dL (<30 mg/dL) H 09/14/18 13:33 Urine Glucose (UA) 100 mg/dL (NEGATIVE) H 09/14/18 13:33 Urine Ketones Negative mg/dL (NEGATIVE) 09/14/18 13:33 Urine Blood Large (NEGATIVE) H 09/14/18 13:33 Urine Nitrate Negative (NEGATIVE) 09/14/18 13:33 Urine Bilirubin Small (NEGATIVE) H 09/14/18 13:33 Urine Urobilinogen 2.0 E.U./dL (<1 E.U./dL) H 09/14/18 13:33 Ur Leukocyte Esterase Large Antonina/uL (NEGATIVE) H 09/14/18 13:33 Urine RBC 1 - 3 /hpf (0-2) 09/14/18 13:33 Urine WBC Tntc /hpf (0-6) 09/14/18 13:33 Urine Bacteria Many (NEG) 09/14/18 13:33 Urine Opiates Screen Positive (NEGATIVE) H 09/14/18 22:45 Urine Methadone Screen Negative (NEGATIVE) 09/14/18 22:45 Ur Barbiturates Screen Negative (NEGATIVE) 09/14/18 22:45 Ur Phencyclidine Scrn Negative (NEGATIVE) 09/14/18 22:45 Ur Amphetamines Screen Positive (NEGATIVE) H 09/14/18 22:45 U Benzodiazepines Scrn Negative (NEGATIVE) 09/14/18 22:45 U Oth Cocaine Metabols Negative (NEGATIVE) 09/14/18 22:45 U Cannabinoids Screen Negative (NEGATIVE) 09/14/18 22:45 Alcohol, Quantitative < 10 mg/dL (0-10) 09/14/18 06:35 HIV 1&2 Ag/Ab, 4th Gen Nonreactive (Nonreactive) 09/14/18 09:00 Influenza Typ A,B (EIA) Negative for flu a/b (NEGATIVE) 09/14/18 09:00 - Hospital Course Hospital Course: Lex Rincon DO, PGY-1 Hospitalist Discharge Summary for Dr. Rodriges Mr. Borges is a 42 yo M with PMH of dilated cardiomyopathy, CHF (Echo with EF 20-25%), HTN, and DM2 presented to ED with AMS 2/2 recent heroin OD. Per family, they witnessed Mr. Borges becoming less and less responsive, prompting them to call EMS. In ED, he was given narcan and subsequently became more responsive. He admitted that he had used 1 bag of heroin in order to get relief from b/l groin pain, dysuria, and urethral discharge he had been having for the past two weeks. UDS was positive for both opiates and amphetamine, although Mr. Borges states he did not intent do use amphetamine at the time of his OD. Mr. Borges was originally admitted to the hospital for worsening dysuria and urethral discharge. He did not admit to any other sexual partners aside from his and was unsure about the etiology of the discharge. His UA was positive for TNTC pyuria, leukocyte esterase, and large blood. He was subsequently treated with Rocephin. He was also found to have a RLL infiltrate on CXR concerning for aspiration PNA. He was treated with rocephin, flagyl, and doxycycline over the course of hospitalization. With treatment, his dysuria, urinary frequency, and discharge improved. Today prior to discharge, patient stated he no longer has discharge and complained of only mild dysuria which is improving. While in the hospital, Mr. Borges also continued to be hypertensive despite treatment. He came to admit to a history of CHF after his first night in the hospital. He stated his was diagnosed at [facility] after he had a cardiac cath last year. Cardiology was subsequently consulted and bedside TTE was performed. The echo found severely depressed LVEF of 20-25% and changes c/w dilated cardiomyopathy. Records were obtained from [facility] which confirmed cardiac cath was done in 2017 and patient had a history of severe CHF/cardiomyopathy at that time. EP, Dr. Chappell, was consulted for recommendation of possible life vest and/or permanent ICD placement. EP spoke with him and he adamantly refused ICD placement or other intervention at this time. EP had an extensive discussion with him that he needed to stop using drugs and follow up closely with medical management. EP advised strict BP control with maximal doses of coreg, cozaar, hydralazine, and other agents as needed. He was subsequently continued on Coreg 25 BID, Cozaar 50 daily, Hydralazine 50 PO TID, and Imdur 60 daily. His BP was subsequently better controlled with these agents. He was discharged today with additional doses of doxycycline and the new BP medicines. He was advised to follow up closely with a new PMD that his insurance allowed. Per EP, he was also advised to have a follow up echocardiogram in 2-4 months. He was instructed to discuss these recommendations with his new PMD. An appointment was made for him and patient agreed to time and place of appointment. His new PMD and other instructions are outlined below. Medicines were delivered at bedside to patient. All questions were answered. Discharge Exam - Head Exam Head Exam: ATRAUMATIC, NORMOCEPHALIC Discharge Plan - Discharge Medications Prescriptions: Aspirin [Aspirin Chewable] 81 mg PO DAILY #30 chew Atorvastatin [Lipitor] 20 mg PO DIN #30 tab Carvedilol [Coreg] 25 mg PO BID #60 tab Doxycycline Hyclate [Doryx] 100 mg PO Q12 7 Days #14 cap Furosemide [Lasix] 20 mg PO DAILY #30 tab hydrALAZINE [Apresoline] 50 mg PO TID 30 Days #90 tab Isosorbide Mononitrate [Imdur] 60 mg PO DAILY #30 tab Losartan [Cozaar] 50 mg PO DAILY #30 tab metroNIDAZOLE [Flagyl] 500 mg PO Q8 7 Days #28 tab Potassium Chloride [K-Dur 20 mEq ER Tab] 20 meq PO BRK 30 Days #30 tab - Follow Up Plan Condition: STABLE Disposition: HOME/ ROUTINE Instructions: Coronary Heart Disease, Narcotic Overdose (DC), Myocardial Infarction (DC) Additional Instructions: Repeat Echocardiogram in 2-4 months. We have given you a prescription to get this completed at [facility]. Please follow up with the clinic at our [facility] here at [facility]. Please follow up with Dr. June regarding your cardiomyopathy. Abstain from alcohol, tobacco, heroin, and amphetamine. These will all greatly worsen the condition of your heart. The most important treatment for yourself is to stop all of these agents. If you have new or worsening symptoms, please go to nearest ED immediately. Your sugar is high. Continue diet and exercise. Follow up with primary care do ctor . Shabbir Borges [employer] - Member number: [id number] - Group number: [id number] - Question: Call Primary Care Doctor Dr Christopher Dove [address] [place] [id number] Appointment: Wednesday 09/19 2:45pm Referrals: [facility] [place] [facility] [place] <Leyla Rodriges - Last Filed: 09/20/18 17:20> Provider - Provider Date of Admission: 09/14/18 07:59 Attending physician: Leyla Rodriges MD Primary care physician: José Luis Collier MD Hospital Course - Lab Results Lab Results: Micro Results 09/14/18 09:00 Blood-Venous Blood Culture - Final NO GROWTH AFTER 5 DAYS 09/14/18 09:00 Blood-Venous Gram Stain - Final TEST NOT PERFORMED 09/14/18 08:45 Blood-Venous Blood Culture - Final NO GROWTH AFTER 5 DAYS 09/14/18 08:45 Blood-Venous Gram Stain - Final TEST NOT PERFORMED 09/14/18 22:45 Urine Urine Culture - Final No Growth (<1,000 CFU/ML) 09/14/18 23:18 Urine Urine Culture - Final No Growth (<1,000 CFU/ML) Most Recent Lab Values WBC 8.1 10^3/uL (4.5-11.0) 09/18/18 10:15 RBC 5.25 10^6/uL (3.5-6.1) 09/18/18 10:15 Hgb 15.2 g/dL (14.0-18.0) 09/18/18 10:15 Hct 45.1 % (42.0-52.0) 09/18/18 10:15 MCV 85.9 fl (80.0-105.0) 09/18/18 10:15 MCH 29.0 pg (25.0-35.0) 09/18/18 10:15 MCHC 33.7 g/dl (31.0-37.0) 09/18/18 10:15 RDW 15.1 % (11.5-14.5) H 09/18/18 10:15 Plt Count 295 10^3/uL (120.0-450.0) 09/18/18 10:15 MPV 9.2 fl (7.0-11.0) 09/18/18 10:15 Gran % 60.0 % (50.0-68.0) 09/18/18 10:15 Lymph % (Auto) 24.5 % (22.0-35.0) 09/18/18 10:15 [place] % (Auto) 12.4 % (1.0-6.0) H 09/18/18 10:15 Eos % (Auto) 2.6 % (1.5-5.0) 09/18/18 10:15 Baso % (Auto) 0.5 % (0.0-3.0) 09/18/18 10:15 Gran # 4.87 (1.4-6.5) 09/18/18 10:15 Lymph # (Auto) 2.0 (1.2-3.4) 09/18/18 10:15 [place] # (Auto) 1.0 (0.1-0.6) H 09/18/18 10:15 Eos # (Auto) 0.2 (0.0-0.7) 09/18/18 10:15 Baso # (Auto) 0.04 K/mm3 (0.0-2.0) 09/18/18 10:15 PT 17.7 SECONDS (9.4-12.5) H 09/14/18 09:00 INR 1.53 09/14/18 09:00 APTT 38.3 Seconds (25.1-36.5) H 09/14/18 09:00 Sodium 135 mmol/L (132-148) 09/18/18 10:15 Potassium 4.2 mmol/L (3.6-5.0) 09/18/18 10:15 Chloride 104 mmol/L (98-107) 09/18/18 10:15 Carbon Dioxide 23 mmol/L (21-33) 09/18/18 10:15 Anion Gap 12 (10-20) 09/18/18 10:15 BUN 21 mg/dL (7-21) 09/18/18 10:15 Creatinine 0.9 mg/dl (0.8-1.5) 09/18/18 10:15 Est GFR ( Amer) > 60 09/18/18 10:15 Est GFR (Non-Af Amer) > 60 09/18/18 10:15 POC Glucose (mg/dL) 165 mg/dL (65-110) H 09/18/18 16:14 Random Glucose 94 mg/dL (70-110) 09/18/18 10:15 Hemoglobin A1c 6.8 % (4.2-6.5) H 09/14/18 04:10 Calcium 8.3 mg/dL (8.4-10.5) L 09/18/18 10:15 Phosphorus 3.3 mg/dL (2.5-4.5) 09/16/18 03:00 Magnesium 1.7 mg/dL (1.7-2.2) 09/16/18 03:00 Total Bilirubin 1.0 mg/dL (0.2-1.3) 09/18/18 10:15 Direct Bilirubin 1.7 mg/dL (0.0-0.4) H 09/14/18 06:35 AST 41 U/L (17-59) 09/18/18 10:15 ALT 27 U/L (7-56) 09/18/18 10:15 Alkaline Phosphatase 184 U/L (38-126) H 09/18/18 10:15 Lactate Dehydrogenase 628 U/L (333-699) 09/15/18 05:30 Total Creatine Kinase 74 U/L (35-230) 09/15/18 05:30 Troponin I 0.21 ng/mL H* 09/16/18 03:00 Total Protein 7.9 g/dL (5.8-8.3) 09/18/18 10:15 Albumin 2.9 g/dL (3.0-4.8) L 09/18/18 10:15 Globulin 5.0 gm/dL 09/18/18 10:15 Albumin/Globulin Ratio 0.6 (1.1-1.8) L 09/18/18 10:15 Triglycerides 51 mg/dL (35-160) 09/14/18 06:35 Cholesterol 110 mg/dL (130-200) L 09/14/18 06:35 LDL Cholesterol Direct 95 mg/dL (0-129) 09/14/18 06:35 HDL Cholesterol 18 mg/dL (29-60) L 09/14/18 06:35 Procalcitonin 0.35 NG/ML (0.19-0.49) 09/14/18 06:35 Urine Color Yellow (YELLOW) 09/14/18 13:33 Urine Appearance Turbid (CLEAR) 09/14/18 13:33 Urine pH 7.5 (4.7-8.0) 09/14/18 13:33 Ur Specific [place] 1.020 (1.005-1.035) 09/14/18 13:33 Urine Protein >=300 mg/dL (<30 mg/dL) H 09/14/18 13:33 Urine Glucose (UA) 100 mg/dL (NEGATIVE) H 09/14/18 13:33 Urine Ketones Negative mg/dL (NEGATIVE) 09/14/18 13:33 Urine Blood Large (NEGATIVE) H 09/14/18 13:33 Urine Nitrate Negative (NEGATIVE) 09/14/18 13:33 Urine Bilirubin Small (NEGATIVE) H 09/14/18 13:33 Urine Urobilinogen 2.0 E.U./dL (<1 E.U./dL) H 09/14/18 13:33 Ur Leukocyte Esterase Large Antonina/uL (NEGATIVE) H 09/14/18 13:33 Urine RBC 1 - 3 /hpf (0-2) 09/14/18 13:33 Urine WBC Tntc /hpf (0-6) 09/14/18 13:33 Urine Bacteria Many (NEG) 09/14/18 13:33 Urine Opiates Screen Positive (NEGATIVE) H 09/14/18 22:45 Urine Methadone Screen Negative (NEGATIVE) 09/14/18 22:45 Ur Barbiturates Screen Negative (NEGATIVE) 09/14/18 22:45 Ur Phencyclidine Scrn Negative (NEGATIVE) 09/14/18 22:45 Ur Amphetamines Screen Positive (NEGATIVE) H 09/14/18 22:45 U Benzodiazepines Scrn Negative (NEGATIVE) 09/14/18 22:45 U Oth Cocaine Metabols Negative (NEGATIVE) 09/14/18 22:45 U Cannabinoids Screen Negative (NEGATIVE) 09/14/18 22:45 Alcohol, Quantitative < 10 mg/dL (0-10) 09/14/18 06:35 C.trachomatis RNA (TMA) Not detected (Not Detected) 09/16/18 22:20 HIV 1&2 Ag/Ab, 4th Gen Nonreactive (Nonreactive) 09/14/18 09:00 Influenza Typ A,B (EIA) Negative for flu a/b (NEGATIVE) 09/14/18 09:00 N.gonorrhoeae RNA (TMA) Detected (Not Detected) H 09/16/18 22:20 Attending/Attestation - Attestation I have personally seen and examined this patient.: Yes I have fully participated in the care of the patient.: Yes I have reviewed all pertinent clinical information, including history, physical exam and plan: Yes Notes (Text): 09/19/18 15:16 attending note; Patient seen and examined with resident. Patient denies any fever, chills. Denies any chest pain, shortness of breath. Denies any abdominal pain. Tolerating diet well. Denies any urinary symptoms. Patient is a 42-year-old male with past medical history significant for type 2 diabetes, hypertension, CHF, noncompliance with all medications, tobacco abuse, and polysubstance abuse including IV heroin and marijuana that presented to the emergency room after using IV heroin and being lethargic. 1.Altered mental status and lethargy; secondary to heroin/drug abuse. Currently patient is alert and awake. Complete Drug abuse cessation strongly advised. 2. Elevated troponin. Cardiology evaluation appreciated. patient with severe cardiomyopathy. echocardiogram showed ejection fraction of 25%. patient had cardiac cath in 2017 at [facility]. 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 consult note appreciated. Patient is not a candidate for LifeVest or AICD for now. Complete drug abuse cessation is strongly recommended. Medication titrated for better blood pressure control. BP is better controlled today. Continue on aspirin, Lipitor, and Coreg, Lasix ,Imdur and hydralazine. 3. hypertension; blood pressure is better controlled today. 4. polysubstance abuse;. UDS positive for opiates and amphetamines. Discussed with patient. Patient counseled at length on cessation. 5. Dysuria. resolved. Treated with Rocephin and Flagyl. By mouth doxycycline added. Urine culture shows no growth. Will be discharged home with doxycycline and Flagyl. 6. Leukocytosis. resolved. patient is afebrile and nontoxic. Chest x-ray shows patchy right basilar infiltrate, linear atelectasis right lung base, small bibasilar pleural effusions, bilateral hilar prominence, cardiomegaly. 7. Diabetes. Hemoglobin A1c 6.8. diabetic education given. 8. Tobacco abuse. Patient counseled on cessation. 9. GI/DVT prophylaxis. Protonix/heparin Upon discharge the patient will follow up with PMD . patient needs close Follow-up with cardiology. The diagnosis, treatment options discussed with patient in detail. Addendum; Chlamydia is negative. Gonorrhea is positive. Patient informed. Advised to complete treatment. Advised the patient to let his partners know and to get tested for treatment. 09/20/18 17:18
[2018-09-18 18:21] VITALS: BP 108/61; PULSE 67; TEMP 98
== END 2018-09-18 21:06 | disposition home or self-care (01) | DRG 582 ==
LOC: ED 03:48 → ERH 07:59 → 2RNO 10:35
PROVIDERS: ADMIT Hospitalist; ATTEND Internal Medicine
DX: T40.1X1A Poisoning by heroin, accidental (unintentional), initial encounter (principal); I50.22 Chronic systolic (congestive) heart failure; I42.0 Dilated cardiomyopathy; I11.0 Hypertensive heart disease with heart failure; N39.0 Urinary tract infection, site not specified; F11.10 Opioid abuse, uncomplicated; F15.10 Other stimulant abuse, uncomplicated; J98.11 Atelectasis; E11.9 Type 2 diabetes mellitus without complications; I16.1 Hypertensive emergency; F17.200 Nicotine dependence, unspecified, uncomplicated; E78.5 Hyperlipidemia, unspecified; F10.10 Alcohol abuse, uncomplicated; F12.90 Cannabis use, unspecified, uncomplicated; Z91.19 Patient's noncompliance with other medical treatment and regimen; Z91.14 Patient's other noncompliance with medication regimen; Z86.73 Personal history of transient ischemic attack (TIA), and cerebral infarction without residual deficits